=== PATIENT | male | born 1950 | race Caucasian/White ===

== ENCOUNTER 2016-08-23 21:18 | Inpatient (IN) | payer BC ==
[2016-08-23] MEDS ORDERED: Levalbuterol HCl 1.25 MG/3 ML Neb ONE (21:21)
[2016-08-23] MEDS ORDERED: Levalbuterol HCl 1.25 MG/3 ML Neb NEB ONE ×2 (21:31→22:17)
--- NOTE | 2016-08-23 22:38 | EDM.PDOC ---
ED HPI GENERAL MEDICAL PROBLEM - General Chief Complaint: Respiratory Problem Stated Complaint: SOB Time Seen by Provider: 08/23/16 21:31 Source of Information: Reports: Patient History Limitations: Reports: No Limitations - History of Present Illness INITIAL COMMENTS - FREE TEXT/NARRATIVE: Has a history of COPD and CHF. has become increasingly sob today, and is now very sob and wheezing. Onset: Today, Gradual Duration: Hour(s): Location: Reports: Chest Severity: Moderate Associated Symptoms: Reports: Chest Pain, Cough Treatments [employer]ICER: Reports: Breathing Treatments - Related Data Allergies Allergy/AdvReac Type Severity Reaction Status Date / Time No Known Allergies Allergy Verified 08/23/16 21:28 Home Meds: Home Meds Albuterol/Ipratropium [Combivent] 2 puff INH QID PRN 10/17/13 [History] Simvastatin 20 mg PO BEDTIME 10/17/13 [History] Tamsulosin HCl 0.4 mg PO DAILY 10/17/13 [History] Warfarin Sodium 7.5 mg PO DAILY 10/17/13 [History] glipiZIDE [Glucotrol XL] 2.5 mg PO DAILY 10/17/13 [History] Furosemide [Lasix] 80 mg PO BID #60 tablet 10/20/13 [Rx] Aspirin [Halfprin] 81 mg PO DAILY 04/13/15 [History] Carvedilol 6.25 mg PO BID 04/13/15 [History] Losartan Potassium 12.5 mg PO DAILY 04/13/15 [History] Spironolactone [Aldactone] 25 mg PO DAILY 04/13/15 [History] Past Medical History Cardiovascular History: Reports: Heart Valve Replacement, Hypertension Endocrine/Metabolic History: Reports: Diabetes, Type II - Past Surgical History HEENT Surgical History: Reports: Tonsillectomy Other HEENT Surgeries/Procedures: 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 Other Musculoskeletal Surgeries/Procedures:: KNEE TROUBLE-CORTISONE SHOTS ARTHRITIS Social & Family History - Tobacco Use Smoking Status *Q: Never Smoker Second Hand Smoke Exposure: No - Alcohol Use Days Per Week of Alcohol Use: 0 - Recreational Drug Use Recreational Drug Use: No ED ROS GENERAL - Review of Systems Review Of Systems: See Below Constitutional: Reports: No Symptoms, Weakness, Fatigue HEENT: Reports: No Symptoms Respiratory: Reports: Shortness of Breath, Wheezing, Cough Cardiovascular: Reports: No Symptoms, Chest Pain Endocrine: Reports: No Symptoms GI/Abdominal: Reports: No Symptoms : Reports: No Symptoms Musculoskeletal: Reports: No Symptoms Skin: Reports: Wound Neurological: Reports: No Symptoms Psychiatric: Reports: No Symptoms Hematologic/Lymphatic: Reports: No Symptoms Immunologic: Reports: No Symptoms ED EXAM, GENERAL - Physical Exam Exam: See Below Exam Limited By: No Limitations General Appearance: Alert, WD/WN, No Apparent Distress Eye Exam: Right Eye: Abnormal Pupil (blind in right eye) Ears: Normal External Exam Nose: Normal Inspection Throat/Mouth: Normal Inspection Head: Atraumatic, Normocephalic Neck: Normal Inspection, Supple Respiratory/Chest: Crackles, Rales, Rhonchi, Wheezing Cardiovascular: Tachycardia, Irregularly Irregular GI/Abdominal: Distended Back Exam: Normal Inspection Extremities: Pedal Edema Neurological: Alert, Oriented Psychiatric: Anxious Skin Exam: Wound/Incision (stasis ulcer on left leg covered with compression dressing from wound care.) Course - Vital Signs Last Recorded V/S: Last Vital Signs Temp 98.9 F 08/23/16 22:04 Pulse 133 H 08/23/16 22:13 Resp 24 H 08/23/16 22:04 BP 106/75 08/23/16 22:04 Pulse Ox 95 08/23/16 22:04 - Orders/Labs/Meds Orders: Active Orders 24 hr Category Date Time Status RT Aerosol Therapy [RC] ASDIRECTED Care 08/23/16 21:31 Active RT Aerosol Therapy [RC] ASDIRECTED Care 08/23/16 22:17 Active CXR [Chest 2V] [CR] Stat Exams 08/23/16 21:32 Taken Medication Orders Acetaminophen (Tylenol) 650 mg PO Q4H PRN PRN Reason: Pain (Mild 1-3)/fever Aspirin (Halfprin) 81 mg PO DAILY [facility] Carvedilol (Coreg) 6.25 mg PO BID [facility] Furosemide (Lasix) 60 mg IVPUSH Q12H [facility] Levalbuterol HCl (Xopenex) 1.25 mg NEB QIDRT [facility] Losartan Potassium (Cozaar) 12.5 mg PO DAILY [facility] Methylprednisolone Sodium Succinate (Solu-Medrol) 125 mg IVPUSH Q8H [facility] Non-Formulary Medication (Glipizide [Glucotrol Xl]) 2.5 mg PO DAILY [facility] Ondansetron HCl (Zofran Odt) 4 mg PO Q4H PRN PRN Reason: nausea, able to take PO Simvastatin (Zocor) 20 mg PO BEDTIME [facility] Sodium Chloride (Saline Flush) 10 ml FLUSH ASDIRECTED PRN PRN Reason: Keep Vein Open Spironolactone (Aldactone) 25 mg PO DAILY [facility] Tamsulosin HCl (Flomax) 0.4 mg PO DAILY [facility] Warfarin Sodium (Coumadin) 7.5 mg PO DAILY [facility] Labs: Laboratory Tests 08/23/16 08/23/16 08/23/16 Range/Units 22:00 22:00 22:00 WBC 9.2 (5.0-10.0) 10^3/uL RBC 4.48 L (4.50-6.00) 10^6/uL Hgb 14.1 (14.0-18.0) g/dL Hct 43.9 (40.0-54.0) % MCV 98.0 H (82.0-94.0) fL MCH 31.5 (27.0-32.0) pg MCHC 32.1 L (33.0-38.0) g/dL RDW Coeff of Rena 15.0 (11.0-15.0) % Plt Count 187 (150-400) 10^3/uL Neut % (Auto) 71.4 (35-85) % Lymph % (Auto) 12.3 (10-55) % [place] % (Auto) 12.0 (0-16) % Eos % (Auto) 3.8 (0-5) % Baso % (Auto) 0.5 (0-3) % Neut # (Auto) 6.58 (1.80-7.00) 10^3/uL Lymph # (Auto) 1.13 (1.00-4.80) 10^3/uL [place] # (Auto) 1.11 H (0.00-0.80) 10^3/uL Eos # (Auto) 0.35 (0.00-0.45) 10^3/uL Baso # (Auto) 0.05 10^3/uL PT (9.7-12.3) SEC INR (0.92-1.18) D-Dimer, Quantitative 0.35 (0.00-0.50) Sodium 139 (136-145) mEq/L Potassium 5.8 H D (3.5-5.0) mEq/L Chloride 104 (98-106) mEq/L Carbon Dioxide 29 (21-32) mmol/L BUN 25 H (7-18) mg/dL Creatinine 1.8 H D (0.7-1.3) mg/dL Est Cr Clr Drug Dosing 37.41 mL/min Estimated GFR (MDRD) 38 L (>=60) mL/min Glucose 137 H D (75-99) mg/dL Calcium 9.2 (8.4-10.1) mg/dL Total Bilirubin 0.8 (0.0-1.0) mg/dL AST 23 (15-37) U/L ALT 27 (12-78) U/L Alkaline Phosphatase 68 (46-116) U/L Troponin I 0.024 (0.00-0.06) ng/mL [id number]-Yihbtqehtko Pept 4593 H (0-1000) pg/nL Total Protein 7.0 (6.4-8.2) g/dL Albumin 3.5 (3.4-5.0) g/dL 08/23/16 Range/Units 22:00 WBC (5.0-10.0) 10^3/uL RBC (4.50-6.00) 10^6/uL Hgb (14.0-18.0) g/dL Hct (40.0-54.0) % MCV (82.0-94.0) fL MCH (27.0-32.0) pg MCHC (33.0-38.0) g/dL RDW Coeff of Rena (11.0-15.0) % Plt Count (150-400) 10^3/uL Neut % (Auto) (35-85) % Lymph % (Auto) (10-55) % [place] % (Auto) (0-16) % Eos % (Auto) (0-5) % Baso % (Auto) (0-3) % Neut # (Auto) (1.80-7.00) 10^3/uL Lymph # (Auto) (1.00-4.80) 10^3/uL [place] # (Auto) (0.00-0.80) 10^3/uL Eos # (Auto) (0.00-0.45) 10^3/uL Baso # (Auto) 10^3/uL PT 60.0 H (9.7-12.3) SEC INR 5.28 H* (0.92-1.18) D-Dimer, Quantitative (0.00-0.50) Sodium (136-145) mEq/L Potassium (3.5-5.0) mEq/L Chloride (98-106) mEq/L Carbon Dioxide (21-32) mmol/L BUN (7-18) mg/dL Creatinine (0.7-1.3) mg/dL Est Cr Clr Drug Dosing mL/min Estimated GFR (MDRD) (>=60) mL/min Glucose (75-99) mg/dL Calcium (8.4-10.1) mg/dL Total Bilirubin (0.0-1.0) mg/dL AST (15-37) U/L ALT (12-78) U/L Alkaline Phosphatase (46-116) U/L Troponin I (0.00-0.06) ng/mL Fdy-M-Ikbjhlqyitd Pept (0-1000) pg/nL Total Protein (6.4-8.2) g/dL Albumin (3.4-5.0) g/dL Meds: Medications Generic Name Dose Route Start Last Admin Trade Name Freq PRN Reason Stop Dose Admin Acetaminophen 650 mg 08/23/16 22:52 Tylenol PO Q4H PRN Pain (Mild 1-3)/fever Aspirin 81 mg 08/24/16 08:00 Halfprin PO DAILY [facility] Carvedilol 6.25 mg 08/24/16 08:00 Coreg PO BID [facility] Furosemide 60 mg 08/23/16 23:11 Lasix IVPUSH Q12H [facility] Levalbuterol HCl 1.25 mg 08/23/16 23:15 Xopenex NEB QIDRT [facility] Losartan Potassium 12.5 mg 08/24/16 08:00 Cozaar PO DAILY [facility] Methylprednisolone Sodium Succinate 125 mg 08/23/16 23:00 Solu-Medrol IVPUSH Q8H [facility] Non-Formulary Medication 2.5 mg 08/24/16 08:00 Glipizide [Glucotrol Xl] PO DAILY [facility] Ondansetron HCl 4 mg 08/23/16 22:52 Zofran Odt PO Q4H PRN nausea, able to take PO Simvastatin 20 mg 08/24/16 20:00 Zocor PO BEDTIME [facility] Sodium Chloride 10 ml 08/23/16 22:52 Saline Flush FLUSH ASDIRECTED PRN Keep Vein Open Spironolactone 25 mg 08/24/16 08:00 Aldactone PO DAILY [facility] Tamsulosin HCl 0.4 mg 08/24/16 08:00 Flomax PO DAILY [facility] Warfarin Sodium 7.5 mg 08/24/16 08:00 Coumadin PO DAILY [facility] Discontinued Medications Generic Name Dose Route Start Last Admin Trade Name Freq PRN Reason Stop Dose Admin Furosemide 60 mg 08/23/16 22:50 08/23/16 22:54 Lasix IVPUSH 08/23/16 22:51 60 mg ONETIME ONE Administration Furosemide 40 mg 08/23/16 23:00 Lasix IVPUSH Q12H [facility] Levalbuterol HCl Confirm 08/23/16 21:21 08/23/16 21:50 Xopenex Administered 08/23/16 21:22 Not Given Dose 1.25 mg .ROUTE .STK-MED ONE Levalbuterol HCl 1.25 mg 08/23/16 21:31 08/23/16 21:50 Xopenex NEB 08/23/16 21:32 1.25 mg ONETIME ONE Administration Levalbuterol HCl 1.25 mg 08/23/16 22:17 08/23/16 22:20 Xopenex NEB 08/23/16 22:18 1.25 mg ONETIME ONE Administration Methylprednisolone Sodium Succinate 125 mg 08/23/16 23:00 08/23/16 22:54 Solu-Medrol IVPUSH 125 mg Q12H [facility] Administration Departure - Departure Time of Disposition: 23:22 Disposition: Admitted As Inpatient 68 Condition: fair Clinical Impression: CHF (congestive heart failure), COPD (chronic obstructive pulmonary disease), Hyperkalemia, Renal insufficiency - Discharge Information - My Orders Last 24 Hours: My Active Orders 08/23/16 21:31 RT Aerosol Therapy [RC] ASDIRECTED 08/23/16 21:32 CXR [Chest 2V] [CR] Stat 08/23/16 22:17 RT Aerosol Therapy [RC] ASDIRECTED - Assessment/Plan Last 24 Hours: My Active Orders 08/23/16 21:31 RT Aerosol Therapy [RC] ASDIRECTED 08/23/16 21:32 CXR [Chest 2V] [CR] Stat 08/23/16 22:17 RT Aerosol Therapy [RC] ASDIRECTED
[2016-08-23] MEDS ORDERED: Furosemide 100 MG/10 ML SDV IVPUSH ONE (22:50)
[2016-08-23] MEDS ORDERED: Sodium Chloride 0.9% 10 ML Syringe FLUSH PRN (22:52)
[2016-08-23] MEDS ORDERED: Ondansetron 4 MG Tab.DIS PO PRN (22:52)
[2016-08-23] MEDS ORDERED: Acetaminophen 325 MG Tab PO PRN (22:52)
[2016-08-23] MEDS ORDERED: Furosemide 40 MG/4 ML VIAL IVPUSH SCH (23:00)
[2016-08-23] MEDS ORDERED: methylPREDNISolone Sodium Succinate 125 MG/2 ML SDV IVPUSH SCH (23:00)
[2016-08-23] MEDS: methylPREDNISolone Sodium Succinate 125 MG/2 ML SDV IVPUSH SCH (23:56)
[2016-08-23] MEDS: Furosemide 40 MG/4 ML VIAL IVPUSH SCH (23:57)
[2016-08-23] MEDS: Levalbuterol HCl 1.25 MG/3 ML Neb NEB SCH (23:57)
[2016-08-24] MEDS: methylPREDNISolone Sodium Succinate 125 MG/2 ML SDV IVPUSH SCH ×3 (06:30→22:01)
[2016-08-24] MEDS: Carvedilol 3.125 MG Tab PO SCH ×2 (07:49→19:47)
[2016-08-24] MEDS: Spironolactone 25 MG Tab PO SCH (07:49)
[2016-08-24] MEDS: Losartan 25 MG Tab PO SCH (07:50)
[2016-08-24] MEDS: Tamsulosin 0.4 MG Cap.ER PO SCH (07:50)
[2016-08-24] MEDS ORDERED: Warfarin 5 MG Tab PO SCH (08:00)
[2016-08-24] MEDS: Levalbuterol HCl 1.25 MG/3 ML Neb NEB SCH ×4 (09:07→21:14)
[2016-08-24] MEDS: GLIPIZIDE 2.5 MG PO SCH (10:05)
[2016-08-24] MEDS: Furosemide 40 MG/4 ML VIAL IVPUSH SCH ×2 (10:22→22:12)
[2016-08-24] MEDS: Warfarin 5 MG Tab PO SCH (12:08)
[2016-08-24] MEDS: Aspirin 81 MG Tab.EC PO SCH (12:08)
[2016-08-24] MEDS: Insulin Aspart 100 Units/ML 3 ML Pen SUBCUT SCH ×3 (12:09→21:36)
--- NOTE | 2016-08-24 12:49 | PCM.PN ---
- General Info Date of Service: 08/24/16 Admission Dx/Problem (Free Text): CHF/ copd Functional Status: Reports: pain controlled - Review of Systems General: Reports: No Symptoms HEENT: Reports: no symptoms Cardiovascular: Reports: Dyspnea on Exertion Gastrointestinal: Reports: No symptoms Musculoskeletal: Reports: no symptoms Skin: Reports: no symptoms Neurological: Reports: No Symptoms Psychiatric: Reports: no symptoms Systems Review Comment:: Sitting up in chair, states he is breathing much better. Offloading large amounts of urine. Lab looks good Serum K down. Started on sliding scale insulin due to elevated blood sugars secondary to steroids. Will continue to monitor closely. - Patient Data Vitals - most recent: Last Vital Signs Temp 97.2 F 08/24/16 11:45 Pulse 106 H 08/24/16 11:45 Resp 18 08/24/16 11:45 BP 134/82 08/24/16 11:45 Pulse Ox 92 L 08/24/16 11:45 Weight - most recent: 262 lb 11.2 oz I&O - last 24 hours: Intake & Output 08/23/16 08/24/16 08/24/16 22:59 06:59 14:59 Intake Total 600 600 Output Total 2750 1000 Balance -2150 -400 Lab Results last 24 hrs: Laboratory Results - last 24 hr 08/24/16 08/24/16 Range/Units 07:15 08:01 Sodium 139 (136-145) mEq/L Potassium 4.9 (3.5-5.0) mEq/L Chloride 103 (98-106) mEq/L Carbon Dioxide 27 (21-32) mmol/L BUN 24 H (7-18) mg/dL Creatinine 1.5 H (0.7-1.3) mg/dL Est Cr Clr Drug Dosing 44.90 mL/min Estimated GFR (MDRD) 47 L (>=60) mL/min Glucose 167 H (75-99) mg/dL POC Glucose 180 H (75-105) mg/dl Calcium 9.0 (8.4-10.1) mg/dL Troponin I 0.018 (0.00-0.06) ng/mL Med Orders - Current: Current Medications Acetaminophen (Tylenol) 650 mg PO Q4H PRN PRN Reason: Pain (Mild 1-3)/fever Aspirin (Halfprin) 81 mg PO DAILY [facility] Last Admin: 08/24/16 12:08 Dose: 81 mg Carvedilol (Coreg) 6.25 mg PO BID [facility] Last Admin: 08/24/16 07:49 Dose: 6.25 mg Furosemide (Lasix) 60 mg IVPUSH Q12H [facility] Last Admin: 08/24/16 10:22 Dose: 60 mg Insulin Aspart (Novolog) 0 unit SUBCUT WITHMEALSANDBED [facility] PRN Reason: Protocol Last Admin: 08/24/16 12:09 Dose: 6 units Levalbuterol HCl (Xopenex) 1.25 mg NEB QIDRT [facility] Last Admin: 08/24/16 09:07 Dose: 1.25 mg Losartan Potassium (Cozaar) 12.5 mg PO DAILY [facility] Last Admin: 08/24/16 07:50 Dose: 12.5 mg Methylprednisolone Sodium Succinate (Solu-Medrol) 125 mg IVPUSH Q8H [facility] Last Admin: 08/24/16 06:30 Dose: 125 mg Non-Formulary Medication (Glipizide [Glucotrol Xl]) 2.5 mg PO DAILY [facility] Last Admin: 08/24/16 10:05 Dose: 2.5 mg Ondansetron HCl (Zofran Odt) 4 mg PO Q4H PRN PRN Reason: nausea, able to take PO Simvastatin (Zocor) 20 mg PO BEDTIME [facility] Sodium Chloride (Saline Flush) 10 ml FLUSH ASDIRECTED PRN PRN Reason: Keep Vein Open Spironolactone (Aldactone) 25 mg PO DAILY [facility] Last Admin: 08/24/16 07:49 Dose: 25 mg Tamsulosin HCl (Flomax) 0.4 mg PO DAILY [facility] Last Admin: 08/24/16 07:50 Dose: 0.4 mg Warfarin Sodium (Coumadin) 5 mg PO DAILY@1200 [facility] Last Admin: 08/24/16 12:08 Dose: 5 mg Discontinued Medications Furosemide (Lasix) 60 mg IVPUSH ONETIME ONE Stop: 08/23/16 22:51 Last Admin: 08/23/16 22:54 Dose: 60 mg Furosemide (Lasix) 40 mg IVPUSH Q12H [facility] Last Admin: 08/23/16 23:57 Dose: Not Given Levalbuterol HCl (Xopenex) Confirm Administered Dose 1.25 mg .ROUTE .STK-MED ONE Stop: 08/23/16 21:22 Last Admin: 08/23/16 21:50 Dose: Not Given Levalbuterol HCl (Xopenex) 1.25 mg NEB ONETIME ONE Stop: 08/23/16 21:32 Last Admin: 08/23/16 21:50 Dose: 1.25 mg Levalbuterol HCl (Xopenex) 1.25 mg NEB ONETIME ONE Stop: 08/23/16 22:18 Last Admin: 08/23/16 22:20 Dose: 1.25 mg Methylprednisolone Sodium Succinate (Solu-Medrol) 125 mg IVPUSH Q12H [facility] Last Admin: 08/23/16 22:54 Dose: 125 mg Warfarin Sodium (Coumadin) 7.5 mg PO DAILY [facility] - Problem List Review Problem List Initiated/Reviewed/Updated: Yes - My Orders Last 24 Hours: My Active Orders 08/23/16 22:52 Bedrest Bathroom Privileges [RC] .PRN Oxygen Therapy [RC] .PRN Up to Chair [RC] .PRN Vital Signs [RC] 0000,0400,0800,1200,1600,2000 Acetaminophen [Tylenol] 650 mg PO Q4H PRN Ondansetron [Zofran ODT] 4 mg PO Q4H PRN Sodium Chloride 0.9% [Saline Flush] 10 ml FLUSH ASDIRECTED PRN Saline Lock Insert [OM.PC] Routine Resuscitation Status Routine 08/23/16 22:53 Intake and Output [RC] 0600,1800 08/23/16 22:54 Cardiac Monitoring [RC] 0800,2000 08/23/16 23:00 methylPREDNISolone Sod Succ [Solu-MEDROL] 125 mg IVPUSH Q8H 08/23/16 23:04 RT Aerosol Therapy [RC] .PRN 08/23/16 23:11 Furosemide [Lasix] 60 mg IVPUSH Q12H 08/23/16 23:15 Levalbuterol HCl [Xopenex] 1.25 mg NEB QIDRT 08/23/16 23:44 Blood Glucose Check, Bedside [RC] WITHMEALSANDBED 08/24/16 08:00 Aspirin [Halfprin] 81 mg PO DAILY Carvedilol [Coreg] 6.25 mg PO BID Losartan [Cozaar] 12.5 mg PO DAILY Spironolactone [Aldactone] 25 mg PO DAILY Tamsulosin [Flomax] 0.4 mg PO DAILY glipiZIDE [Glucotrol XL] 2.5 mg PO DAILY 08/24/16 12:00 Insulin Aspart [NovoLOG] See Protocol SUBCUT WITHMEALSANDBED Warfarin [Coumadin] 5 mg PO DAILY@1200 08/24/16 20:00 Simvastatin [Zocor] 20 mg PO BEDTIME 08/25/16 12:37 BMP [BASIC METABOLIC PANEL,BMP] [CHEM] Routine 08/27/16 05:11 INR,PT,PROTHROMBIN TIME [COAG] AM
[2016-08-24] MEDS: Simvastatin 20 MG Tab PO SCH (19:49)
[2016-08-25] MEDS: methylPREDNISolone Sodium Succinate 125 MG/2 ML SDV IVPUSH SCH ×2 (07:41→20:49)
[2016-08-25] MEDS: Furosemide 40 MG/4 ML VIAL IVPUSH SCH ×2 (07:44→16:12)
[2016-08-25] MEDS: GLIPIZIDE 2.5 MG PO SCH (07:48)
[2016-08-25] MEDS: Tamsulosin 0.4 MG Cap.ER PO SCH (07:48)
[2016-08-25] MEDS: Aspirin 81 MG Tab.EC PO SCH (07:49)
[2016-08-25] MEDS: Spironolactone 25 MG Tab PO SCH (07:49)
[2016-08-25] MEDS: Carvedilol 3.125 MG Tab PO SCH ×2 (07:53→20:49)
[2016-08-25] MEDS: Losartan 25 MG Tab PO SCH (07:53)
[2016-08-25] MEDS: Insulin Aspart 100 Units/ML 3 ML Pen SUBCUT SCH ×4 (08:30→20:56)
[2016-08-25] MEDS: Levalbuterol HCl 1.25 MG/3 ML Neb NEB SCH ×4 (08:33→20:49)
[2016-08-25] MEDS: Warfarin 5 MG Tab PO SCH (12:12)
--- NOTE | 2016-08-25 13:25 | PCM.PN ---
- General Info Date of Service: 08/25/16 Admission Dx/Problem (Free Text): CHF/COPD. Patient is much better, and feels good. BBS are clear. Patient has lost 12 lbs since admission. Will stop Lasix after next dose. Patient wants to go home, but I talked him into staying one more day to get set up with home oxygen. Renal panel is much improved, serum K down to 3.9. Will need to evaluate potassium intake at discharge. I spoke at length with patient about hsi work life. He is wanting to get back to [employer] as soon as possible, but I think her needs to go home and rest for a least a week. 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 - Review of Systems General: Reports: No Symptoms HEENT: Reports: no symptoms Pulmonary: Reports: no symptoms Cardiovascular: Reports: No Symptoms Gastrointestinal: Reports: No symptoms Musculoskeletal: Reports: no symptoms Skin: Reports: no symptoms Neurological: Reports: No Symptoms Psychiatric: Reports: no symptoms - Patient Data Vitals - most recent: Last Vital Signs Temp 96.7 F 08/25/16 12:00 Pulse 128 H 08/25/16 12:00 Resp 16 08/25/16 12:00 BP 115/72 08/25/16 12:00 Pulse Ox 91 L 08/25/16 12:00 Weight - most recent: 256 lb I&O - last 24 hours: Intake & Output 08/24/16 08/25/16 08/25/16 22:59 06:59 14:59 Intake Total 600 600 Output Total 1150 850 Balance -550 -250 Lab Results last 24 hrs: Laboratory Results - last 24 hr 08/24/16 08/24/16 08/24/16 Range/Units 11:37 17:20 21:30 Sodium (136-145) mEq/L Potassium (3.5-5.0) mEq/L Chloride (98-106) mEq/L Carbon Dioxide (21-32) mmol/L BUN (7-18) mg/dL Creatinine (0.7-1.3) mg/dL Est Cr Clr Drug Dosing mL/min Estimated GFR (MDRD) (>=60) mL/min Glucose (75-99) mg/dL POC Glucose 282 H 175 H 261 H (75-105) mg/dl Calcium (8.4-10.1) mg/dL 08/25/16 08/25/16 08/25/16 Range/Units 07:30 07:57 11:48 Sodium 139 (136-145) mEq/L Potassium 3.9 D (3.5-5.0) mEq/L Chloride 101 (98-106) mEq/L Carbon Dioxide 31 (21-32) mmol/L BUN 26 H (7-18) mg/dL Creatinine 1.5 H (0.7-1.3) mg/dL Est Cr Clr Drug Dosing 44.90 mL/min Estimated GFR (MDRD) 47 L (>=60) mL/min Glucose 158 H (75-99) mg/dL POC Glucose 165 H 244 H (75-105) mg/dl Calcium 8.9 (8.4-10.1) mg/dL Med Orders - Current: Current Medications Acetaminophen (Tylenol) 650 mg PO Q4H PRN PRN Reason: Pain (Mild 1-3)/fever Aspirin (Halfprin) 81 mg PO DAILY [facility] Last Admin: 08/25/16 07:49 Dose: 81 mg Carvedilol (Coreg) 6.25 mg PO BID [facility] Last Admin: 08/25/16 07:53 Dose: 6.25 mg Furosemide (Lasix) 40 mg IVPUSH BIDDIURETIC [facility] Last Admin: 08/25/16 07:44 Dose: 40 mg Insulin Aspart (Novolog) 0 unit SUBCUT WITHMEALSANDBED [facility] PRN Reason: Protocol Last Admin: 08/25/16 12:12 Dose: 4 units Levalbuterol HCl (Xopenex) 1.25 mg NEB QIDRT [facility] Last Admin: 08/25/16 12:53 Dose: 1.25 mg Losartan Potassium (Cozaar) 12.5 mg PO DAILY [facility] Last Admin: 08/25/16 07:53 Dose: 12.5 mg Methylprednisolone Sodium Succinate (Solu-Medrol) 125 mg IVPUSH Q12H [facility] Last Admin: 08/25/16 07:41 Dose: 125 mg Non-Formulary Medication (Glipizide [Glucotrol Xl]) 2.5 mg PO DAILY [facility] Last Admin: 08/25/16 07:48 Dose: 2.5 mg Ondansetron HCl (Zofran Odt) 4 mg PO Q4H PRN PRN Reason: nausea, able to take PO Simvastatin (Zocor) 20 mg PO BEDTIME [facility] Last Admin: 08/24/16 19:49 Dose: 20 mg Sodium Chloride (Saline Flush) 10 ml FLUSH ASDIRECTED PRN PRN Reason: Keep Vein Open Spironolactone (Aldactone) 25 mg PO DAILY [facility] Last Admin: 08/25/16 07:49 Dose: 25 mg Tamsulosin HCl (Flomax) 0.4 mg PO DAILY [facility] Last Admin: 08/25/16 07:48 Dose: 0.4 mg Warfarin Sodium (Coumadin) 5 mg PO DAILY@1200 [facility] Last Admin: 08/25/16 12:12 Dose: 5 mg Discontinued Medications Furosemide (Lasix) 60 mg IVPUSH ONETIME ONE Stop: 08/23/16 22:51 Last Admin: 08/23/16 22:54 Dose: 60 mg Furosemide (Lasix) 40 mg IVPUSH Q12H [facility] Last Admin: 08/23/16 23:57 Dose: Not Given Furosemide (Lasix) 60 mg IVPUSH Q12H [facility] Last Admin: 08/24/16 22:12 Dose: 60 mg Levalbuterol HCl (Xopenex) Confirm Administered Dose 1.25 mg .ROUTE .STK-MED ONE Stop: 08/23/16 21:22 Last Admin: 08/23/16 21:50 Dose: Not Given Levalbuterol HCl (Xopenex) 1.25 mg NEB ONETIME ONE Stop: 08/23/16 21:32 Last Admin: 08/23/16 21:50 Dose: 1.25 mg Levalbuterol HCl (Xopenex) 1.25 mg NEB ONETIME ONE Stop: 08/23/16 22:18 Last Admin: 08/23/16 22:20 Dose: 1.25 mg Methylprednisolone Sodium Succinate (Solu-Medrol) 125 mg IVPUSH Q12H [facility] Last Admin: 08/23/16 22:54 Dose: 125 mg Methylprednisolone Sodium Succinate (Solu-Medrol) 125 mg IVPUSH Q8H [facility] Last Admin: 08/24/16 22:01 Dose: 125 mg Warfarin Sodium (Coumadin) 7.5 mg PO DAILY [facility] - Problem List Review Problem List Initiated/Reviewed/Updated: Yes - My Orders Last 24 Hours: My Active Orders 08/24/16 20:00 Simvastatin [Zocor] 20 mg PO BEDTIME 08/25/16 08:00 Furosemide [Lasix] 40 mg IVPUSH BIDDIURETIC methylPREDNISolone Sod Succ [Solu-MEDROL] 125 mg IVPUSH Q12H 08/27/16 05:11 INR,PT,PROTHROMBIN TIME [COAG] AM
[2016-08-25] MEDS: Simvastatin 20 MG Tab PO SCH (20:57)
[2016-08-26] MEDS: Carvedilol 3.125 MG Tab PO SCH ×2 (07:26→19:34)
[2016-08-26] MEDS: Spironolactone 25 MG Tab PO SCH (07:26)
[2016-08-26] MEDS: Losartan 25 MG Tab PO SCH (07:27)
[2016-08-26] MEDS: Tamsulosin 0.4 MG Cap.ER PO SCH (07:28)
[2016-08-26] MEDS: GLIPIZIDE 2.5 MG PO SCH (07:29)
[2016-08-26] MEDS: Furosemide 40 MG Tab PO SCH (07:29)
[2016-08-26] MEDS: Aspirin 81 MG Tab.EC PO SCH (07:29)
[2016-08-26] MEDS: methylPREDNISolone Sodium Succinate 125 MG/2 ML SDV IVPUSH SCH ×2 (07:30→19:35)
[2016-08-26] MEDS: Insulin Aspart 100 Units/ML 3 ML Pen SUBCUT SCH ×4 (07:34→21:07)
[2016-08-26] MEDS: Levalbuterol HCl 1.25 MG/3 ML Neb NEB SCH ×4 (09:34→21:06)
[2016-08-26] MEDS: Simvastatin 20 MG Tab PO SCH (19:35)
[2016-08-27] MEDS ORDERED: glipiZIDE 2.5 MG Tab.ER PO SCH (08:00)
[2016-08-27] MEDS: Tamsulosin 0.4 MG Cap.ER PO SCH (08:28)
[2016-08-27] MEDS: Spironolactone 25 MG Tab PO SCH (08:28)
[2016-08-27] MEDS: Aspirin 81 MG Tab.EC PO SCH (08:28)
[2016-08-27] MEDS: methylPREDNISolone Sodium Succinate 125 MG/2 ML SDV IVPUSH SCH (08:29)
[2016-08-27] MEDS: Furosemide 40 MG Tab PO SCH (08:29)
[2016-08-27] MEDS: Insulin Aspart 100 Units/ML 3 ML Pen SUBCUT SCH (08:32)
[2016-08-27] MEDS: Losartan 25 MG Tab PO SCH (09:02)
[2016-08-27] MEDS: Carvedilol 3.125 MG Tab PO SCH (09:02)
[2016-08-27 09:03] VITALS: BP 145/93
[2016-08-27] MEDS: Levalbuterol HCl 1.25 MG/3 ML Neb NEB SCH (09:07)
--- NOTE | 2016-08-28 07:24 | DISCH ---
HISTORY OF PRESENT ILLNESS: Parag is a 66-year-old male who was admitted to the hospital on 08/23/2016 secondary to CHF and COPD. He had increasing shortness of breath. HOSPITAL COURSE: Breathing improved. He continued to have some dyspnea on exertion with some desaturation while exerting even down to the mid 80%. He did lose quite a bit of fluids on admission. His weight was down 10 pounds in a day. He states that he is feeling much better. Dr. Wilson has been following him during his hospital stay as well as the locum. He did undergo an echocardiogram this morning, however those results are pending. Renal panel has improved as well as serum potassium did come down within normal limits. He was hyperkalemic on admission. LABORATORY WORK: On admission, INR was elevated at 5.28, creatinine was 1.8 with a potassium of 5.8. Repeat potassium on the 08/24/2016 did show down to be 4.9. Creatinine did come down to 1.5. Potassium was down to 3.9 on 08/25/2016 with a creatinine continued to be stable at 1.5. INR did elevate up to 6.96 with his Coumadin just recently being held. This morning the Coumadin level was down to 5.81. PHYSICAL EXAMINATION: VITAL SIGNS: His vital signs did show a current weight to be 253 pounds. On admission he was 268 pounds. Last blood pressure is 131/60 with a respiratory rate is 16, O2 98% on 2 L. Pulse is 75 with a temp of 98. GENERAL: Pleasant cooperative male. He is sitting comfortably in examination room. He is requesting to be discharged today. PLAN: Dr. Wilson did evaluate Parag again this morning. We will plan on discharge at this time. He will be sent home on home oxygen which will be set up by RT Lola. We will also resume home medications. However, we will hold his Coumadin dose until Thursday with followup appointment with Dr. Wilson on Thursday in [facility]. He will have some laboratory work at that time as well. We will increase his Lasix to 80 mg daily. No other further medications will be changed at this point in time. Parag verbalized complete understanding. We will get discharged at this time. DISPOSITION: Discharged home. CHEO/KANDY /[id number]
--- NOTE | 2016-10-13 07:39 | PN ---
DATE: 08/26/2016 S: Mr. Knox was admitted and managed for the weekend by Dr. Selwyn Draper for exacerbation of his CHF. He has been diuresed with Lasix and maintains that he is starting to feel better. Echocardiogram is pending. His weight is down almost 10 pounds since the time of his admission. His blood pressures are better. He is saturating in the upper 90s on 2 L, and for the most part, he has had no complications. INR was elevated at admit as well as his potassium. Coumadin has been held and his potassium is coming down as is his creatinine. O: GENERAL: He is in his usual state. He is a plethoric 66-year-old male in no obvious distress. HEENT: Grossly benign. NECK: Veins are flat and difficult to assess. LUNGS: Sounds are diminished with some basilar crackles. CARDIAC: Tones are irregular. ABDOMEN: Obese, soft, and nontender. EXTREMITIES: Lower extremities with improvement of his edema. He has chronic stasis changes as well. ASSESSMENT: ACUTE EXACERBATION OF CHRONIC SYSTOLIC CONGESTIVE HEART FAILURE. P: Echocardiogram tomorrow. If he is doing well, possible discharge at that time. Continue with diuresis at this point. JACKY/KANDY /[id number]
== END 2016-08-27 10:34 | disposition home health service (06) | DRG 194 ==
LOC: CC.ED 21:18 → CC.MS 22:50
PROVIDERS: ADMIT Nurse Practitioner Family; ATTEND Family Medicine
PROC: 2W1MX6Z Compression of Left Lower Extremity using Pressure Dressing (ICD-10-PCS; principal; 2016-08-26)
DX: I50.9 Heart failure, unspecified (principal); J44.9 Chronic obstructive pulmonary disease, unspecified; I10 Essential (primary) hypertension; E11.9 Type 2 diabetes mellitus without complications; E87.5 Hyperkalemia; N28.9 Disorder of kidney and ureter, unspecified; Z79.899 Other long term (current) drug therapy; Z95.2 Presence of prosthetic heart valve; Z79.01 Long term (current) use of anticoagulants; I83.029 Varicose veins of left lower extremity with ulcer of unspecified site
CPT/HCPCS: 29581; 36415; 71020; 80048; 80053; 82962; 83880; 84484; 85025; 85379; 85610; 93005; 93306; 94640; 94640-76; 94664; 94760; 99285; A9270-GY; J1815-GY; J1940; J2930

== ENCOUNTER → 2017-02-27 | Day surgery (SDC) | payer BC ==
[~2017-02-27] MED LIST: Lidocaine 1% 20 ML MDV ONE
--- NOTE | 2017-02-27 09:43 | OR ---
DATE OF OPERATION: 02/27/2017 PREOPERATIVE DIAGNOSIS: VENOUS INSUFFICIENCY WITH PAINFUL VARICOSE VEINS AND LEG ULCERATIONS. POSTOPERATIVE DIAGNOSIS: VENOUS INSUFFICIENCY WITH PAINFUL VARICOSE VEINS AND LEG ULCERATIONS. SURGEON: Js Wilson MD PROCEDURE: EL, LEFT GSV. ANESTHESIA: Local with tumescent. COMPLICATIONS: None. SPECIMEN: None. FINDINGS: Successful EL, left GSV. INDICATIONS: The patient has documented venous insufficiency. He has CEAP classification with active ulcerations in his left lower leg. He elected to proceed with ablation. DESCRIPTION OF PROCEDURE: The patient was brought to the operating room site, and the insufficient saphenous vein on the left lower leg mapped via ultrasound and diagrammed on the overlying skin. The entire limb was prepped and draped in sterile fashion. The patient was placed in reverse Trendelenburg position. Local anesthesia instilled in the access site. The vein was accessed using ultrasound guidance and Seldinger technique with a guidewire introduced through the needle, needle removed, and a small incision made with 11 blade scalpel. A 6-Yoruba sheath was placed over the wire and held in place by skin tension, wire removed, and the sheath was flushed. Radiofrequency probe was then placed into the vein and advanced to the level of the saphenofemoral junction approximately 2 cm away, keeping just the superior epigastric vein to preserve flow in that region. After probe position again confirmed via ultrasound, tumescent anesthesia was infiltrated in the perivenous compartment achieving a halo effect around the entire vein from the level treatment from the access site to the saphenofemoral junction. The patient was placed back in Trendelenburg position to exsanguinate the superficial system, and the probe position was again verified via ultrasound. Under direct external compression along the length of the heating element, radiofrequency energy was applied. The vein was ablated heating a 7 cm segment and advancing the catheter 6.5 cm until treatment length complete. Device temperature was maintained at 120 degrees Celsius with an initial power level of 40 perez dropping in below 20 for each treatment. Total treatment time was 3 minutes and 40 seconds with 11 radiofrequency cycles. A total of 750 mL of tumescent anesthesia was used. The catheter and sheath were removed without complication and a pressure dressing applied to achieve hemostasis. Ultrasound verified successful treatment. The leg was wrapped with compression wrap from the level of the foot to the groin and patient was stable in the recovery room. MJP/MODL /[id number]
[2017-02-27 16:36] VITALS: BP 140/68
== END ==
LOC: CC.SDS 06:32
PROVIDERS: ATTEND Family Medicine
DX: I87.2 Venous insufficiency (chronic) (peripheral) (principal); L97.929 Non-pressure chronic ulcer of unspecified part of left lower leg with unspecified severity; I83.812 Varicose veins of left lower extremity with pain; Z79.82 Long term (current) use of aspirin; Z79.01 Long term (current) use of anticoagulants; Z79.899 Other long term (current) drug therapy
CPT/HCPCS: 36475; A4216

== ENCOUNTER → 2017-03-26 | Day surgery (SDC) | payer BC ==
[2017-03-26 08:22] VITALS: BP 136/89
--- NOTE | 2017-03-26 11:53 | OR ---
DATE OF OPERATION: 03/26/2017 PREOPERATIVE DIAGNOSIS: VENOUS INSUFFICIENCY WITH PAINFUL VARICOSE VEINS. POSTOPERATIVE DIAGNOSIS: VENOUS INSUFFICIENCY WITH PAINFUL VARICOSE VEINS. SURGEON: Js Wilson MD PROCEDURE: EL, RIGHT GSV. ANESTHESIA: Local with tumescent. COMPLICATIONS: None. SPECIMEN: None. FINDINGS: Successful EL, right GSV. INDICATIONS: The patient has documented venous insufficiency at the saphenofemoral junction. He has symptomatic varicose veins and he elects to proceed with endovenous ablation. DESCRIPTION OF PROCEDURE: The patient brought to the operating room site and the insufficient saphenous vein was mapped via ultrasound and diagrammed on the overlying skin on the right lower extremity. The patient was placed in reverse Trendelenburg position and local anesthesia was instilled at the access site. The vein was accessed using ultrasound guidance and Seldinger technique with a guidewire introduced through the needle. The needle was removed. A small incision was then made with an 11 blade scalpel at the area of the guidewire. A 6-Mohawk sheath was then inserted over the guidewire and held in place by skin tension. Guidewire was removed. The sheath was flushed and radiofrequency probe was placed into the vein through the sheath and positioned approximately 2.05 cm distal to the saphenofemoral junction under ultrasound guidance. After probe position again verified via ultrasound, tumescent anesthesia was infiltrated into the perivenous compartment along the length of the vein from the entry site to the saphenofemoral junction until a nice halo effect was achieved. The patient was placed back in Trendelenburg position to exsanguinate the superficial system. Radiofrequency probe positioned again confirmed via ultrasound at 2 cm with direct external compression along the length of the heating element, radiofrequency energy was applied and the vein was ablated by heating a 7 cm segment and indexing the catheter forward 6.5 cm until treatment length complete. Device temperature was maintained at 120 degrees Celsius with an initial power level of 40 perez, dropping to below 20 for each treatment. Total treatment time was 5 minutes and 20 seconds with 16 radiofrequency cycles. A total of 750 mL of tumescent was used. Ultrasound confirmed successful treatment. Catheter and sheath were withdrawn and hemostasis was achieved with direct pressure. Skin incision was closed with a bandage and compression wrap was applied from the level of the foot to the groin. The patient was stable in the recovery room. JACKY/KANDY /[id number]
== END ==
LOC: CC.SDS 06:33
PROVIDERS: ATTEND Family Medicine
DX: I87.2 Venous insufficiency (chronic) (peripheral) (principal); I83.811 Varicose veins of right lower extremity with pain
CPT/HCPCS: A4216

== ENCOUNTER → 2019-04-15 | Day surgery (SDC) | payer MEDICARE, BC ==
[~2019-04-15] MED LIST changes: -Lidocaine 1% 20 ML MDV ONE; +Propofol 200 MG/20 ML SDV IV ONE
[2019-04-15] MEDS: Lactated Ringers 1,000 ML IV SCH (07:41)
[2019-04-15 10:25] VITALS: BP 101/49; PULSE 56
--- NOTE | 2019-04-15 18:40 | OR ---
DATE OF OPERATION: 04/15/2019 PREOPERATIVE DIAGNOSIS: HISTORY OF POLYPS. POSTOPERATIVE DIAGNOSIS: HISTORY OF POLYPS. SURGEON: Js Wilson MD PROCEDURE: FULL-LENGTH COLONOSCOPY WITH FORCEPS POLYP REMOVAL X3. ANESTHESIA: MAC. COMPLICATIONS: None. SPECIMEN: Three small sessile polyps, all less than 0.5 cm. FINDINGS: 1. Full-length colonoscopy. 2. Mild sigmoid diverticulosis. 3. Sessile polyps x3, see report. RECOMMENDATIONS: Followup colonoscopy in 5 years. INDICATIONS: The patient has a prior history of polyp removal. He is due for a followup endoscopy. DESCRIPTION OF PROCEDURE: The patient was prepped and draped, placed in the left lateral decubitus position. A lubricated Olympus colonoscope was inserted and with relative ease advanced to the cecum further to directly visualize the ileocecal valve and appendiceal orifice. The bowel prep was marginal. The patient had a lot of liquid stool throughout the colon and he was a very hard to keep the air in, which made visualization difficult in some areas. Certainly, smaller lesions may have been missed. Upon withdrawal right in the cecal pouch, the patient had a very small flat likely hyperplastic polyp removed in its entirety with a forceps. The rest of the ascending and transverse colon were benign. At the splenic flexure, the patient had 2 small sessile polyps, each approximately 3 mm, both removed with forceps in their entirety. Descending colon otherwise was benign. Sigmoid colon had some very mild diverticular disease without inflammatory change. There were no other polyps, masses, ulceration, or bleeding sites. No vascular abnormalities or signs of colitis. Rectal vault was benign. Retroflexion showed some perianal hemorrhoid disease, otherwise, benign. Air was suctioned, scope removed without complication. JACKY/KANDY /[id number]
== END ==
LOC: CC.SDS 07:23
PROVIDERS: ATTEND Family Medicine
DX: Z12.11 Encounter for screening for malignant neoplasm of colon (principal); D12.3 Benign neoplasm of transverse colon; K63.5 Polyp of colon; K57.30 Diverticulosis of large intestine without perforation or abscess without bleeding; K64.4 Residual hemorrhoidal skin tags; I11.0 Hypertensive heart disease with heart failure; I50.9 Heart failure, unspecified; E78.5 Hyperlipidemia, unspecified; E11.9 Type 2 diabetes mellitus without complications; I48.91 Unspecified atrial fibrillation; K21.9 Gastro-esophageal reflux disease without esophagitis; G47.33 Obstructive sleep apnea (adult) (pediatric); N40.0 Benign prostatic hyperplasia without lower urinary tract symptoms; E66.9 Obesity, unspecified; Z68.41 Body mass index [BMI] 40.0-44.9, adult; Z86.010 Personal history of colon polyps; Z79.01 Long term (current) use of anticoagulants; Z79.899 Other long term (current) drug therapy; Z95.2 Presence of prosthetic heart valve
CPT/HCPCS: 00812; 36415; 45380; 85610; J2704; J7120

== ENCOUNTER 2019-08-01 10:07 | Emergency (ER) | payer MEDICARE, BC ==
[2019-08-01 10:11] VITALS: BP 138/70; PULSE 68
--- NOTE | 2019-08-01 10:46 | EDM.PDOC ---
ED HPI GENERAL MEDICAL PROBLEM - General Chief Complaint: General Stated Complaint: leg swelling and foot pain with redness Time Seen by Provider: 08/01/19 10:46 Source of Information: Reports: Patient History Limitations: Reports: No Limitations - History of Present Illness INITIAL COMMENTS - FREE TEXT/NARRATIVE: Parag is a 69 yo male who presents to the ED with c/o discoloration to his left lower extremity. Reports he first noticed it about 2 months ago. There have been no changes since then. He reports chronic pain with ambulation in his ankles, knees and hips, nothing acute. Denies any numbness, tingling, fever, warmth, redness. No decreased ROM. No injury to area. Does have chronic swelling , which is at baseline. He recently returned home from 2 months in [place]. Is on coumadin for a fib and heart valve. Has not had his INR checked in 2 months. Onset Date: 05/29/19 Duration: Chronic Location: Reports: Lower Extremity, Left Associated Symptoms: Reports: No Other Symptoms. Denies: Confusion, Chest Pain , Cough, cough w sputum, Diaphoresis, Fever/Chills, Headaches, Loss of Appetite , Malaise, Nausea/Vomiting, Rash, Seizure, Shortness of Breath, Syncope, Weakness Treatments ECG TECHNICIAN: Reports: Other (see below) (Coumadin) Left Lower Foot Pain Score (Numeric/FACES): 6 - Related Data Allergies Allergy/AdvReac Type Severity Reaction Status Date / Time No Known Allergies Allergy Verified 08/01/19 10:14 Home Meds: Home Meds Simvastatin 20 mg PO BEDTIME 10/17/13 [History] Tamsulosin HCl 0.4 mg PO DAILY 10/17/13 [History] Losartan Potassium 25 mg PO DAILY 04/13/15 [History] Spironolactone [Aldactone] 25 mg PO DAILY 04/13/15 [History] carvediloL [Carvedilol] 6.25 mg PO BID 04/13/15 [History] Warfarin Sodium 10 mg PO MOTUWETHSA 09/02/16 [History] Warfarin Sodium 7.5 mg PO SUFR 04/15/19 [History] Past Medical History Cardiovascular History: Reports: Afib, Heart Valve Replacement, High Cholesterol , Hypertension Respiratory History: Reports: Sleep Apnea Other Respiratory History: Use Bipap Endocrine/Metabolic History: Reports: Diabetes, Type II - Past Surgical History HEENT Surgical History: Reports: Tonsillectomy Other HEENT Surgeries/Procedures: 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 Cardiovascular Surgical History: Reports: Valve Replacement Other Musculoskeletal Surgeries/Procedures:: KNEE TROUBLE-CORTISONE SHOTS ARTHRITIS Social & Family History - Family History Family Medical History: Noncontributory - Tobacco Use Smoking Status *Q: Never Smoker Second Hand Smoke Exposure: No - Caffeine Use Caffeine Use: Reports: None - Recreational Drug Use Recreational Drug Use: No ED ROS GENERAL - Review of Systems Review Of Systems: Comprehensive ROS is negative, except as noted in HPI. ED EXAM, GENERAL - Physical Exam Exam: See Below Exam Limited By: No Limitations General Appearance: Alert, WD/WN, No Apparent Distress Neck: Normal Inspection, Supple, Non-Tender, Full Range of Motion Respiratory/Chest: No Respiratory Distress, Lungs Clear, Normal Breath Sounds, No Accessory Muscle Use, Chest Non-Tender Cardiovascular: Normal Peripheral Pulses, Regular Rate, Rhythm, Systolic Murmur Peripheral Pulses: 1+: Posterior Tibial (L), Posterior Tibial (R), Dorsalis Pedis (L), Dorsalis Pedis (R) GI/Abdominal: Normal Bowel Sounds, Soft, Non-Tender, No Organomegaly, No Distention, No Abnormal Bruit, No Mass Extremities: Normal Range of Motion, Non-Tender, Normal Capillary Refill, Pedal Edema (1+ pitting LLE), Other (hyperpigmentation to anterior aspect of LLE). No : Saurav's Sign, Leg Pain, Limited Range of Motion, Increased Warmth, Mottled, Pallor, Redness Neurological: Alert, Oriented, CN II-XII Intact, Normal Cognition, Normal Gait, Normal Reflexes, No Motor/Sensory Deficits Psychiatric: Normal Affect, Normal Mood Skin Exam: Warm, Dry, No Rash, Other (stasis dermatitis to anterior LLE, scabs noted to BLE without evidence of infection) Course - Vital Signs Last Recorded V/S: Last Vital Signs Temp 96.0 F L 08/01/19 10:09 Pulse 68 08/01/19 10:09 Resp 18 08/01/19 10:09 BP 138/70 08/01/19 10:09 Pulse Ox 96 08/01/19 10:09 - Orders/Labs/Meds Labs: Laboratory Tests 08/01/19 08/01/19 08/01/19 Range/Units 10:21 10:22 10:23 WBC 8.8 (5.0-10.0) 10^3/uL RBC 4.29 L (4.50-6.00) 10^6/uL Hgb 13.5 L (14.0-18.0) g/dL Hct 41.6 (40.0-54.0) % MCV 97.0 H (82.0-94.0) fL MCH 31.5 (27.0-32.0) pg MCHC 32.5 L (33.0-38.0) g/dL RDW Coeff of Rena 13.9 (11.0-15.0) % Plt Count 192 (150-400) 10^3/uL Neut % (Auto) 76.5 (35-85) % Lymph % (Auto) 12.3 (10-55) % [place] % (Auto) 7.9 (0-16) % Eos % (Auto) 2.8 (0-5) % Baso % (Auto) 0.5 (0-3) % Neut # (Auto) 6.75 (1.80-7.00) 10^3/uL Lymph # (Auto) 1.09 (1.00-4.80) 10^3/uL [place] # (Auto) 0.70 (0.00-0.80) 10^3/uL Eos # (Auto) 0.25 (0.00-0.45) 10^3/uL Baso # (Auto) 0.04 10^3/uL PT 20.8 H (9.7-12.3) SEC INR 2.07 H (0.92-1.18) Sodium 140 (136-145) mEq/L Potassium 4.8 (3.5-5.0) mEq/L Chloride 105 (98-106) mEq/L Carbon Dioxide 29 (21-32) mmol/L BUN 31 H (7-18) mg/dL Creatinine 1.2 (0.7-1.3) mg/dL Est Cr Clr Drug Dosing 48.08 mL/min Estimated GFR (MDRD) > 60 (>=60) mL/min Glucose 100 H (75-99) mg/dL Calcium 9.3 (8.4-10.1) mg/dL C-Reactive Protein 0.8 (0.2-0.8) mg/dL - Re-Assessments/Exams Free Text/Narrative Re-Assessment/Exam: Dr. Wilson did also examine patient and agreed with assessment/diagnosis. Departure - Departure Time of Disposition: 11:13 Disposition: Home, Self-Care 01 Condition: Good Clinical Impression: Chronic stasis dermatitis of left lower extremity - Discharge Information *PRESCRIPTION DRUG MONITORING PROGRAM REVIEWED*: Not Applicable *COPY OF PRESCRIPTION DRUG MONITORING REPORT IN PATIENT DENISA: Not Applicable Instructions: Stasis Dermatitis Referrals: PCP,Unknown [Primary Care Provider] - Forms: ED Department Discharge Additional Instructions: - Continue current dose Coumadin - Recheck INR 4 weeks - Manage swelling in legs to prevent further discoloration. Low sodium diet. Elevate legs when able. - Follow up with PCP as needed - Return to ED for emergent needs - Self quarantine 14 days Sepsis Event Note - Evaluation Sepsis Screening Result: No Definite Risk - Focused Exam Vital Signs: Vital Signs Temp Pulse Resp BP Pulse Ox 08/01/19 10:09 96.0 F L 68 18 138/70 96 Date Exam was Performed: 08/01/19 Time Exam was Performed: 11:18
[2019-08-01 10:57] LABS: CHLORIDE,CL 105 mEq/L (98-106); SODIUM,NA 140 mEq/L (136-145)
== END 2019-08-01 11:23 | disposition home or self-care (01) ==
LOC: CC.ED 10:07
DX: I87.2 Venous insufficiency (chronic) (peripheral) (principal); I48.91 Unspecified atrial fibrillation; E78.00 Pure hypercholesterolemia, unspecified; I10 Essential (primary) hypertension; E11.9 Type 2 diabetes mellitus without complications; Z79.899 Other long term (current) drug therapy
CPT/HCPCS: 36415; 80048; 85025; 85610; 86140; 99283

== ENCOUNTER 2019-10-16 15:27 | Emergency (ER) | payer MEDICARE, BC ==
[2019-10-16] MEDS ORDERED: Acetaminophen/HYDROcodone 325-5 MG Tab PO ONE (15:28)
[2019-10-16 15:30] VITALS: BP 148/62; PULSE 61
--- NOTE | 2019-10-16 15:36 | EDM.PDOC ---
ED HPI GENERAL MEDICAL PROBLEM - General Chief Complaint: Lower Extremity Injury/Pain Stated Complaint: L knee/leg pain Time Seen by Provider: 10/16/19 15:31 Source of Information: Reports: Patient History Limitations: Reports: No Limitations - History of Present Illness INITIAL COMMENTS - FREE TEXT/NARRATIVE: Patient to the emergency department complaining of left knee pain and swelling. The patient vies he was out mowing the grass yesterday on a riding lawnmower and he did have some discomfort last night but then today after mowing the grass he had more discomfort and he feels crepitation with ambulating. The patient is unsure of any injury or trauma. The patient denies any ankle pain denies any hip pain denies any back pain denies any numbness or tingling. There is no redness there is some mild swelling. Denies any other symptoms Onset: Gradual Duration: Day(s): (As above) Location: Reports: Lower Extremity, Left (Left knee) Quality: Reports: Ache Severity: Moderate Improves with: Reports: None Worsens with: Reports: Movement Context: Reports: Other (Unsure of any injury or trauma) Associated Symptoms: Denies: Nausea/Vomiting, Weakness Treatments HOLLOW WARE MAKER: Reports: Other (see below) (none) Left Knee Pain Score (Numeric/FACES): 7 - Related Data Allergies Allergy/AdvReac Type Severity Reaction Status Date / Time No Known Allergies Allergy Verified 10/16/19 15:30 Home Meds: Home Meds Simvastatin 20 mg PO BEDTIME 10/17/13 [History] Tamsulosin HCl 0.4 mg PO DAILY 10/17/13 [History] Losartan Potassium 25 mg PO DAILY 04/13/15 [History] Spironolactone [Aldactone] 25 mg PO DAILY 04/13/15 [History] carvediloL [Carvedilol] 6.25 mg PO BID 04/13/15 [History] Warfarin Sodium 10 mg PO MOTUWETHSA 09/02/16 [History] Warfarin Sodium 7.5 mg PO SUFR 04/15/19 [History] Ketorolac [Toradol] 10 mg PO TID PRN 5 Days #15 tab 10/16/19 [Rx] Past Medical History Cardiovascular History: Reports: Afib, Heart Valve Replacement, High Cholesterol, Hypertension Respiratory History: Reports: Sleep Apnea Other Respiratory History: Use Bipap Endocrine/Metabolic History: Reports: Diabetes, Type II - Past Surgical History HEENT Surgical History: Reports: Tonsillectomy Other HEENT Surgeries/Procedures: 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 Cardiovascular Surgical History: Reports: Valve Replacement Other Musculoskeletal Surgeries/Procedures:: KNEE TROUBLE-CORTISONE SHOTS ARTHRITIS Social & Family History - Family History Family Medical History: Noncontributory - Tobacco Use Smoking Status *Q: Never Smoker - Caffeine Use Caffeine Use: Reports: Soda - Recreational Drug Use Recreational Drug Use: No Review of Systems - Review of Systems Review Of Systems: See Below Constitutional: Reports: No Symptoms Eyes: Reports: No Symptoms Ears: Reports: No Symptoms Nose: Reports: No Symptoms Mouth/Throat: Reports: No Symptoms Respiratory: Reports: No Symptoms Cardiovascular: Reports: No Symptoms GI/Abdominal: Reports: No Symptoms. Denies: Nausea, Vomiting Musculoskeletal: Reports: Joint Pain, Joint Swelling (Left knee pain left knee swelling) Skin: Reports: No Symptoms. Denies: Bruising, Rash, Erythema Neurological: Reports: No Symptoms. Denies: Numbness, Tingling ED EXAM, GENERAL - Physical Exam Exam: See Below Exam Limited By: No Limitations General Appearance: Alert, WD/WN, No Apparent Distress Head: Atraumatic, Normocephalic Neck: Normal Inspection, Supple, Non-Tender, Full Range of Motion Respiratory/Chest: No Respiratory Distress, Lungs Clear, Normal Breath Sounds, Chest Non-Tender Cardiovascular: Normal Peripheral Pulses, Regular Rate, Rhythm, No Murmur Peripheral Pulses: 2+: Radial (L), Posterior Tibial (L), Posterior Tibial (R) GI/Abdominal: Soft, Non-Tender Back Exam: Normal Inspection, Full Range of Motion Extremities: Normal Range of Motion, Normal Capillary Refill, Joint Swelling (Left knee pain and swelling no redness) Neurological: Alert, Oriented, Normal Cognition, No Motor/Sensory Deficits Psychiatric: Normal Affect, Normal Mood Skin Exam: Warm, Dry, Intact, Normal Color ED TRAUMA EXTREMITY PROCEDURES - Splinting Left Lower Extremity Splint Site: Left knee Pre-Procedure NV Status: Normal Post-Procedure NV Status: Normal Splint Material: Other (Throughout) Splint Design: Other (Isma wrap) Applied & Form Fitted By: Nurse Provider Post-Splint Application NV Check: NV Status Normal Complications: No Course - Vital Signs Text/Narrative:: The patient was evaluated in the emergency department, x-ray of the left knee was obtained which shows a joint effusion and a lot of degenerative changes no definite fracture seen. An Isma wrap will be placed to the patient's left knee, the patient will be advised to follow [facility] protocol. The patient be given [place] 5/325 mg 1 every 6 hours needed for pain #4 to go. He also be given a prescription for Toradol 1 tab 3 times daily as needed he is also advised to follow-up with Dr. wilson this week for further evaluation and treatment and possible referral to an orthopedic doctor. He is to return to emergency department sooner for worsening problems Last Recorded V/S: Last Vital Signs Temp 37.1 C 10/16/19 15:27 Pulse 61 10/16/19 15:27 Resp 18 10/16/19 15:27 BP 148/62 H 10/16/19 15:27 Pulse Ox 97 10/16/19 15:27 - Orders/Labs/Meds Orders: Active Orders 24 hr Category Date Time Status Isma Bandage [RC] ONETIME Care 10/16/19 16:49 Ordered Knee Min 4V Lt [CR] Stat Exams 10/16/19 15:32 Ordered Meds: Medications Discontinued Medications Generic Name Dose Route Start Last Admin Trade Name Freq PRN Reason Stop Dose Admin Hydrocodone Bitart/Acetaminophen 2 packet 10/16/19 16:49 Take Home: Acetaminophen/Hydrocod, 2 Tab Pack PO 10/16/19 16:50 ONETIME ONE Departure - Departure Time of Disposition: 16:46 Disposition: Home, Self-Care 01 Condition: Good Clinical Impression: Left knee sprain, Effusion, left knee - Discharge Information *PRESCRIPTION DRUG MONITORING PROGRAM REVIEWED*: Not Applicable *COPY OF PRESCRIPTION DRUG MONITORING REPORT IN PATIENT DENISA: Not Applicable Prescriptions: Ketorolac [Toradol] 10 mg PO TID PRN 5 Days #15 tab PRN Reason: Pain (Moderate 4-6) Instructions: Knee Sprain, Adult Referrals: PCP,None [Primary Care Provider] - Forms: ED Department Discharge Additional Instructions: Elevate left leg on 2 pillows Ice off-and-on frequently for 2 days Use the Isma wrap as discussed Toradol 10 mg every 8 hours as needed for pain [place] 5/325 mg 1 every 6 hours as needed for pain Follow-up with Dr. Wilson this week for further evaluation and treatment and referral to the orthopedist Return to the emergency department sooner if worse or any problems Sepsis Event Note (ED) - Evaluation Sepsis Screening Result: No Definite Risk - Focused Exam Vital Signs: Vital Signs Temp Pulse Resp BP Pulse Ox 10/16/19 15:27 37.1 C 61 18 148/62 H 97 - Problem List & Annotations (1) Effusion, left knee SNOMED Code(s): 277065740159169 Code(s): M25.462 - EFFUSION, LEFT KNEE Status: Acute Priority: Medium Current Visit: Yes (2) Left knee sprain SNOMED Code(s): 53071439 Code(s): S83.92XA - SPRAIN OF UNSPECIFIED SITE OF LEFT KNEE, INITIAL ENCOUNTER Status: Acute Priority: Medium Current Visit: Yes Qualifiers: Encounter type: initial encounter - Problem List Review Problem List Initiated/Reviewed/Updated: Yes - My Orders Last 24 Hours: My Active Orders 10/16/19 15:32 Knee Min 4V Lt [CR] Stat 10/16/19 16:49 Isma Bandage [RC] ONETIME - Assessment/Plan Last 24 Hours: My Active Orders 10/16/19 15:32 Knee Min 4V Lt [CR] Stat 10/16/19 16:49 Isma Bandage [RC] ONETIME Plan: The patient's past medical history, past surgical history, social history and past family medical history reviewed see the nursing notes for details
[2019-10-16] MEDS: Take Home: Acetaminophen/HYDROcodone 325-5 MG, 2 Tab Pack PO ONE (16:53)
== END 2019-10-16 16:58 | disposition home or self-care (01) ==
LOC: CC.ED 15:27
DX: S83.92XA Sprain of unspecified site of left knee, initial encounter (principal); M25.462 Effusion, left knee; E11.9 Type 2 diabetes mellitus without complications; I10 Essential (primary) hypertension; E78.00 Pure hypercholesterolemia, unspecified; I48.91 Unspecified atrial fibrillation; X50.9XXA Other and unspecified overexertion or strenuous movements or postures, initial encounter
CPT/HCPCS: 73564-LT; 99283; A9270-GY

== ENCOUNTER 2020-01-20 01:28 | Emergency (ER) | payer MEDICARE, BC ==
[2020-01-20] MEDS ORDERED: Acetaminophen 500 MG Tab PO ONE (02:06)
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
[2020-01-20 02:28] LABS: CHLORIDE,CL 100 mEq/L (98-106); SODIUM,NA 134 mEq/L (136-145)
[2020-01-20 02:43] LABS: PTT,PARTIAL THROMBOPLSTIN TIME 58.1 SEC (23.2-32.3)
[2020-01-20] MEDS ORDERED: Dexamethasone 4 MG Tab PO ONE (03:06)
[2020-01-20 04:53] VITALS: BP 101/53; PULSE 64
== END 2020-01-20 04:43 ==
LOC: CC.ED 01:29
DX: U07.1 COVID-19 (principal); I48.91 Unspecified atrial fibrillation; E78.00 Pure hypercholesterolemia, unspecified; I10 Essential (primary) hypertension; E11.9 Type 2 diabetes mellitus without complications; Z79.01 Long term (current) use of anticoagulants; Z79.899 Other long term (current) drug therapy
CPT/HCPCS: 36415; 71046; 80053; 83605; 83880; 85025; 85379; 85610; 85730; 86140; 87804; 93005; 99285-25; A9270-GY; J8540; U0002

== ENCOUNTER 2020-02-29 10:40 | Inpatient (IN) | payer MEDICARE, BC ==
[2020-02-29 11:17] LABS: CHLORIDE,CL 96 mEq/L (98-106); SODIUM,NA 131 mEq/L (136-145)
[2020-02-29] MEDS ORDERED: Ondansetron 4 MG/2 ML SDV IV PRN (12:16)
[2020-02-29] MEDS ORDERED: Acetaminophen 325 MG Tab PO PRN (12:16)
[2020-02-29] MEDS ORDERED: Ondansetron 4 MG Tab.DIS PO PRN (12:16)
[2020-02-29] MEDS ORDERED: Acetaminophen 325 MG Tab PO ONE (12:17)
[2020-02-29] MEDS ORDERED: Iopamidol 755 Mg/ML 100 ML Bottle IVPUSH ONE (12:22)
[2020-02-29] MEDS: Sodium Chloride 0.9% 1,000 ML IV SCH ×2 (13:32→19:47)
[2020-02-29] MEDS: Azithromycin 500 MG in Sodium Chloride 0.9% 250 ML IV SCH (13:37)
[2020-02-29] MEDS ORDERED: methylPREDNISolone Sodium Succinate 125 MG/2 ML SDV IVPUSH ONE (14:30)
[2020-02-29] MEDS: cefTRIAXone 1 GM Vial IVPUSH SCH (15:00)
[2020-02-29] MEDS: Simvastatin 20 MG Tab PO SCH (19:52)
[2020-02-29] MEDS: Tamsulosin 0.4 MG Cap.ER PO SCH (19:52)
[2020-02-29] MEDS: Carvedilol 3.125 MG Tab PO SCH (19:56)
[2020-02-29] MEDS ORDERED: Warfarin 5 MG Tab PO SCH (20:00)
[2020-03-01] MEDS: Sodium Chloride 0.9% 1,000 ML IV SCH (05:00)
[2020-03-01 07:41] LABS: CHLORIDE,CL 101 mEq/L (98-106); SODIUM,NA 134 mEq/L (136-145)
[2020-03-01] MEDS: methylPREDNISolone Sodium Succinate 125 MG/2 ML SDV IVPUSH SCH ×2 (07:57→19:32)
[2020-03-01] MEDS: Spironolactone 25 MG Tab PO SCH (08:01)
[2020-03-01] MEDS: Losartan 25 MG Tab PO SCH (08:02)
[2020-03-01] MEDS: Carvedilol 3.125 MG Tab PO SCH ×2 (08:03→19:29)
--- NOTE | 2020-03-01 08:06 | PCM.PN ---
- General Info Date of Service: 03/01/20 Admission Dx/Problem (Free Text): Parag is a a 69 yo male who was direct admitted to the hospital from the clinic yesterday secondary to influenza B with concerns of infiltrate to the RLLL. Patient was started on IV antibiotics, fluids. Functional Status: Reports: Pain Controlled, Tolerating Diet, Ambulating - Review of Systems General: Reports: Fatigue. Denies: Fever, Chills HEENT: Reports: No Symptoms Pulmonary: Reports: Cough (dry). Denies: Shortness of Breath Cardiovascular: Reports: No Symptoms Gastrointestinal: Reports: No Symptoms Genitourinary: Reports: No Symptoms Skin: Reports: No Symptoms Neurological: Reports: No Symptoms Psychiatric: Reports: No Symptoms - Patient Data Vitals - Most Recent: Last Vital Signs Temp 98.7 F 03/01/20 04:00 Pulse 79 03/01/20 04:00 Resp 20 03/01/20 04:00 BP 118/72 03/01/20 04:00 Pulse Ox 94 L 03/01/20 04:00 Weight - Most Recent: 244 lb 3.2 oz I&O - Last 24 Hours: Intake & Output 02/29/20 03/01/20 03/01/20 22:59 06:59 14:59 Intake Total 625 922 Balance 625 922 Lab Results Last 24 Hours: Laboratory Results - last 24 hr 02/29/20 02/29/20 02/29/20 Range/Units 10:52 10:52 10:52 WBC 32.4 H* (5.0-10.0) 10^3/uL RBC 2.99 L (4.50-6.00) 10^6/uL Hgb 9.2 L (14.0-18.0) g/dL Hct 29.3 L (40.0-54.0) % MCV 98.0 H (82.0-94.0) fL MCH 30.8 (27.0-32.0) pg MCHC 31.4 L (33.0-38.0) g/dL RDW Coeff of Rena 17.2 H (11.0-15.0) % Plt Count 379 (150-400) 10^3/uL Add Manual Diff Yes Neutrophils % (Manual) 95 H (35-85) % Band Neutrophils % (0-5) % Lymphocytes % (Manual) 4 L (21-55) % Monocytes % (Manual) 1 L (2-12) % Absolute Neutrophils 30.78 H (1.80-7.00) 10^3/uL Lymphocytes # (Manual) 1.30 (1.00-4.80) 10^3/uL Monocytes # (Manual) 0.32 (0.00-0.80) 10^3/uL PT 11.9 (9.7-12.3) SEC INR 1.18 (0.92-1.18) D-Dimer, Quantitative 1.39 H (0.00-0.50) Sodium 131 L (136-145) mEq/L Potassium 5.2 H (3.5-5.0) mEq/L Chloride 96 L (98-106) mEq/L Carbon Dioxide 26 (21-32) mmol/L BUN 18 (7-18) mg/dL Creatinine 1.5 H (0.7-1.3) mg/dL Est Cr Clr Drug Dosing TNP Estimated GFR (MDRD) 47 L (>=60) mL/min Glucose 141 H (75-99) mg/dL Lactic Acid (0.4-2.0) mmol/L Calcium 8.7 (8.4-10.1) mg/dL Total Bilirubin 1.7 H (0.0-1.0) mg/dL AST 26 (15-37) U/L ALT 22 (12-78) U/L Alkaline Phosphatase 62 (46-116) U/L C-Reactive Protein 15.1 H (0.2-0.8) mg/dL Total Protein 6.4 (6.4-8.2) g/dL Albumin 2.6 L (3.4-5.0) g/dL Urine Color (YELLOW) Urine Appearance (CLEAR) Urine pH (4.5-8.0) Ur Specific [place] (1.003-1.020) Urine Protein (NEGATIVE) mg/dL Urine Glucose (UA) (NEGATIVE) mg/dL Urine Ketones (NEGATIVE) mg/dL Urine Occult Blood (NEGATIVE) Urine Nitrite (NEGATIVE) Urine Bilirubin (NEGATIVE) Urine Urobilinogen (0.2-1.0) EU/dL Ur Leukocyte Esterase (NEGATIVE) 02/29/20 03/01/20 03/01/20 Range/Units 13:15 05:24 07:05 WBC (5.0-10.0) 10^3/uL RBC (4.50-6.00) 10^6/uL Hgb (14.0-18.0) g/dL Hct (40.0-54.0) % MCV (82.0-94.0) fL MCH (27.0-32.0) pg MCHC (33.0-38.0) g/dL RDW Coeff of Rena (11.0-15.0) % Plt Count (150-400) 10^3/uL Add Manual Diff Neutrophils % (Manual) (35-85) % Band Neutrophils % (0-5) % Lymphocytes % (Manual) (21-55) % Monocytes % (Manual) (2-12) % Absolute Neutrophils (1.80-7.00) 10^3/uL Lymphocytes # (Manual) (1.00-4.80) 10^3/uL Monocytes # (Manual) (0.00-0.80) 10^3/uL PT (9.7-12.3) SEC INR (0.92-1.18) D-Dimer, Quantitative (0.00-0.50) Sodium (136-145) mEq/L Potassium (3.5-5.0) mEq/L Chloride (98-106) mEq/L Carbon Dioxide (21-32) mmol/L BUN (7-18) mg/dL Creatinine (0.7-1.3) mg/dL Est Cr Clr Drug Dosing Estimated GFR (MDRD) (>=60) mL/min Glucose (75-99) mg/dL Lactic Acid 3.8 H 1.0 (0.4-2.0) mmol/L Calcium (8.4-10.1) mg/dL Total Bilirubin (0.0-1.0) mg/dL AST (15-37) U/L ALT (12-78) U/L Alkaline Phosphatase (46-116) U/L C-Reactive Protein (0.2-0.8) mg/dL Total Protein (6.4-8.2) g/dL Albumin (3.4-5.0) g/dL Urine Color Yellow (YELLOW) Urine Appearance Clear (CLEAR) Urine pH 5.5 (4.5-8.0) Ur Specific [place] 1.025 H (1.003-1.020) Urine Protein Negative (NEGATIVE) mg/dL Urine Glucose (UA) Negative (NEGATIVE) mg/dL Urine Ketones Negative (NEGATIVE) mg/dL Urine Occult Blood Negative (NEGATIVE) Urine Nitrite Negative (NEGATIVE) Urine Bilirubin Negative (NEGATIVE) Urine Urobilinogen 0.2 (0.2-1.0) EU/dL Ur Leukocyte Esterase Negative (NEGATIVE) 03/01/20 03/01/20 03/01/20 Range/Units 07:05 07:05 07:05 WBC 20.8 H* (5.0-10.0) 10^3/uL RBC 2.65 L (4.50-6.00) 10^6/uL Hgb 8.1 L (14.0-18.0) g/dL Hct 26.1 L (40.0-54.0) % MCV 98.5 H (82.0-94.0) fL MCH 30.6 (27.0-32.0) pg MCHC 31.0 L (33.0-38.0) g/dL RDW Coeff of Rena 16.8 H (11.0-15.0) % Plt Count 308 (150-400) 10^3/uL Add Manual Diff Yes Neutrophils % (Manual) 88 H (35-85) % Band Neutrophils % 9 H (0-5) % Lymphocytes % (Manual) 2 L (21-55) % Monocytes % (Manual) 1 L (2-12) % Absolute Neutrophils (1.80-7.00) 10^3/uL Lymphocytes # (Manual) (1.00-4.80) 10^3/uL Monocytes # (Manual) (0.00-0.80) 10^3/uL PT 11.2 (9.7-12.3) SEC INR 1.11 (0.92-1.18) D-Dimer, Quantitative (0.00-0.50) Sodium 134 L (136-145) mEq/L Potassium 4.7 (3.5-5.0) mEq/L Chloride 101 (98-106) mEq/L Carbon Dioxide 26 (21-32) mmol/L BUN 17 (7-18) mg/dL Creatinine 1.0 (0.7-1.3) mg/dL Est Cr Clr Drug Dosing 57.69 Estimated GFR (MDRD) > 60 (>=60) mL/min Glucose 172 H (75-99) mg/dL Lactic Acid (0.4-2.0) mmol/L Calcium 8.4 (8.4-10.1) mg/dL Total Bilirubin (0.0-1.0) mg/dL AST (15-37) U/L ALT (12-78) U/L Alkaline Phosphatase (46-116) U/L C-Reactive Protein 15.5 H (0.2-0.8) mg/dL Total Protein (6.4-8.2) g/dL Albumin (3.4-5.0) g/dL Urine Color (YELLOW) Urine Appearance (CLEAR) Urine pH (4.5-8.0) Ur Specific [place] (1.003-1.020) Urine Protein (NEGATIVE) mg/dL Urine Glucose (UA) (NEGATIVE) mg/dL Urine Ketones (NEGATIVE) mg/dL Urine Occult Blood (NEGATIVE) Urine Nitrite (NEGATIVE) Urine Bilirubin (NEGATIVE) Urine Urobilinogen (0.2-1.0) EU/dL Ur Leukocyte Esterase (NEGATIVE) Jamie Results Last 24 Hours: Microbiology 02/29/20 11:03 Influenza Type A Antigen Screen - Final Nasopharyngeal Swab NEGATIVE INFLUENZA A VIRUS AG REFERENCE RANGE: NEGATIVE Influenza Type B Antigen Screen - Final Positive Influenza B Ag Med Orders - Current: Current Medications Acetaminophen (Tylenol) 650 mg PO Q4H PRN PRN Reason: Pain (Mild 1-3)/fever Last Admin: 02/29/20 13:31 Dose: 650 mg Documented by: Carvedilol (Coreg) 6.25 mg PO BID [facility] Last Admin: 02/29/20 19:56 Dose: Not Given Documented by: Ceftriaxone Sodium (Rocephin) 1 gm IVPUSH Q24H [facility] Last Admin: 02/29/20 15:00 Dose: 1 gm Documented by: Azithromycin 500 mg/ Sodium (Chloride) 250 mls @ 250 mls/hr IV Q24H [facility] Last Admin: 02/29/20 13:37 Dose: 250 mls/hr Documented by: Losartan Potassium (Cozaar) 25 mg PO DAILY [facility] Methylprednisolone Sodium Succinate (Solu-Medrol) 125 mg IVPUSH BID [facility] Last Admin: 03/01/20 07:57 Dose: 125 mg Documented by: Ondansetron HCl (Zofran Odt) 4 mg PO Q4H PRN PRN Reason: nausea, able to take PO Ondansetron HCl (Zofran) 4 mg IV Q4H PRN PRN Reason: Nausea/Vomiting Simvastatin (Zocor) 20 mg PO BEDTIME [facility] Last Admin: 02/29/20 19:52 Dose: 20 mg Documented by: Spironolactone (Aldactone) 25 mg PO DAILY [facility] Tamsulosin HCl (Flomax) 0.4 mg PO BEDTIME [facility] Last Admin: 02/29/20 19:52 Dose: 0.4 mg Documented by: Warfarin Sodium (Coumadin) 5 mg PO [email or web address] [facility] Last Admin: 02/29/20 19:52 Dose: 5 mg Documented by: Warfarin Sodium (Coumadin) 2.5 mg PO [email or web address] [facility] Discontinued Medications Acetaminophen (Tylenol) 650 mg PO NOW ONE Stop: 02/29/20 12:18 Last Admin: 02/29/20 14:05 Dose: Not Given Documented by: Sodium Chloride (Normal Saline) 1,000 mls @ 100 mls/hr IV ASDIRECTED [facility] Last Admin: 03/01/20 05:00 Dose: 100 mls/hr Documented by: Iopamidol ([id number] (76%)) 100 ml IVPUSH ONETIME ONE Stop: 02/29/20 12:23 Last Admin: 02/29/20 12:53 Dose: 100 ml Documented by: Methylprednisolone Sodium Succinate (Solu-Medrol) 125 mg IVPUSH ONETIME ONE Stop: 02/29/20 14:31 Last Admin: 02/29/20 14:55 Dose: 125 mg Documented by: - Exam General: Alert, Oriented, Cooperative, No Acute Distress Neck: Supple Lungs: Decreased Breath Sounds. No: Crackles, Rales, Rhonchi, Wheezing Cardiovascular: Regular Rate, Regular Rhythm, Murmurs GI/Abdominal Exam: Normal Bowel Sounds, Soft, No Organomegaly, No Mass Extremities: Normal Inspection, Pedal Edema (1+ bilaterally) Skin: Warm, Dry, Intact Neurological: No New Focal Deficit Psy/Mental Status: Alert, Normal Affect, Normal Mood Sepsis Event Note - Evaluation Sepsis Screening Result: Severe Sepsis Risk - Focused Exam Vital Signs: Vital Signs Temp Pulse Resp BP Pulse Ox 03/01/20 04:00 98.7 F 79 20 118/72 94 L 02/29/20 23:30 97.3 F 85 20 120/57 L 95 - Problem List & Annotations (1) Influenza B SNOMED Code(s): 58744185 Code(s): J10.1 - FLU DUE TO OTH IDENT INFLUENZA VIRUS W OTH RESP MANIFEST Status: Acute Current Visit: Yes (2) Right lower lobe pneumonia SNOMED Code(s): 104247826 Code(s): J18.9 - PNEUMONIA, UNSPECIFIED ORGANISM Status: Acute Current Visit: Yes Qualifiers: Pneumonia type: due to unspecified organism Qualified Code(s): J18.9 - Pneumonia, unspecified organism - Problem List Review Problem List Initiated/Reviewed/Updated: Yes - Plan Plan:: Parag has shown significant improvement today. Admits to feeling a lot better this morning. Hasn't had any fevers through out the night. States he has been up ambulating and denies any shortness of breath. Feels he got a good night rest last night. WBC has significantly improved. Lactic acid with in normal limits today. INR continues to be low and will give extra dose of Coumadin today. Will repeat labs in the am. Tamiflu to be started today. Will continue IV antibiotics at this time with secondary pneumonia.
[2020-03-01] MEDS ORDERED: Warfarin 5 MG Tab PO ONE (08:30)
[2020-03-01] MEDS: Oseltamivir 75 MG Cap PO SCH ×2 (08:36→19:31)
[2020-03-01] MEDS: Azithromycin 500 MG in Sodium Chloride 0.9% 250 ML IV SCH (12:54)
[2020-03-01] MEDS: cefTRIAXone 1 GM Vial IVPUSH SCH (15:24)
[2020-03-01] MEDS: Tamsulosin 0.4 MG Cap.ER PO SCH (19:30)
[2020-03-01] MEDS: Simvastatin 20 MG Tab PO SCH (19:31)
[2020-03-01] MEDS ORDERED: Warfarin 2.5 MG Tab PO SCH (20:00)
[2020-03-02 07:37] LABS: CHLORIDE,CL 101 mEq/L (98-106); SODIUM,NA 133 mEq/L (136-145)
[2020-03-02 07:59] VITALS: BP 97/54; PULSE 77
[2020-03-02] MEDS: Spironolactone 25 MG Tab PO SCH (08:03)
[2020-03-02] MEDS: Oseltamivir 75 MG Cap PO SCH (08:03)
[2020-03-02] MEDS: Losartan 25 MG Tab PO SCH (08:03)
[2020-03-02] MEDS: methylPREDNISolone Sodium Succinate 125 MG/2 ML SDV IVPUSH SCH (08:04)
[2020-03-02] MEDS: Carvedilol 3.125 MG Tab PO SCH (08:14)
[2020-03-02] MEDS: Azithromycin 500 MG in Sodium Chloride 0.9% 250 ML IV SCH (08:15)
[2020-03-02] MEDS: cefTRIAXone 1 GM Vial IVPUSH SCH (10:06)
--- NOTE | 2020-03-02 12:35 | PCM.DCSUM1 ---
Discharge Summary - Hospital Course HPI Initial Comments: Parag is a 69 yo male who was admitted to the hospital on the 28 of February with influenza B and RLL pneumonia. Was started on IV antibiotics. WBC, CRP and lactic acid were elevated on admission. Blood cultures were ordered. Diagnosis: Stroke: No - Discharge Data Discharge Date: 03/02/20 Discharge Disposition: Home, Self-Care 01 Condition: Good - Referral to Home Health Primary Care Physician: KELLY Sears - Discharge Diagnosis/Problem(s) (1) Influenza B SNOMED Code(s): 52979010 ICD Code: J10.1 - FLU DUE TO OTH IDENT INFLUENZA VIRUS W OTH RESP MANIFEST Status: Acute (2) Right lower lobe pneumonia SNOMED Code(s): 048258950 ICD Code: J18.9 - PNEUMONIA, UNSPECIFIED ORGANISM Status: Acute Qualifiers: Pneumonia type: due to unspecified organism Qualified Code(s): J18.9 - Pneumonia, unspecified organism - Patient Instructions Diet: Usual Diet as Tolerated Activity: As Tolerated Notify Provider of: Fever - Discharge Plan *PRESCRIPTION DRUG MONITORING PROGRAM REVIEWED*: No *COPY OF PRESCRIPTION DRUG MONITORING REPORT IN PATIENT DENISA: No Prescriptions/Med Rec: Cefuroxime Axetil [Ceftin] 500 mg PO BID #14 tablet Oseltamivir Phosphate 75 mg PO BID #8 capsule Home Medications: Home Meds Simvastatin 20 mg PO BEDTIME 10/17/13 [History] Tamsulosin HCl 0.4 mg PO DAILY 10/17/13 [History] Losartan Potassium 25 mg PO DAILY 04/13/15 [History] Spironolactone [Aldactone] 25 mg PO DAILY 04/13/15 [History] carvediloL [Carvedilol] 6.25 mg PO BID 04/13/15 [History] Cefuroxime Axetil [Ceftin] 500 mg PO BID #14 tablet 03/02/20 [Rx] Oseltamivir Phosphate 75 mg PO BID #8 capsule 03/02/20 [Rx] Warfarin Sodium 2.5 mg PO DAILY #0 03/02/20 [Rx] Oxygen Therapy Mode: Room Air Referrals: Js Wilson MD [ED Physician] - 03/05/20 (Needs CBC, BMP, CRP and INR prior to appointment) - Discharge Summary/Plan Comment DC Time >30 min.: Yes - General Info Date of Service: 03/02/20 Subjective Update: On admission, Parag was given oxygen via nasal canula. Was able to be weaned off of oxygen completely last night. States overall he is feeling well and would like to be discharged. Was started on Tamiflu, IV steroids and antibiotics upon admission. Seen significant improvement with normal lactic acid, decreased WBC and CRP. Functional Status: Reports: Pain Controlled, Tolerating Diet, Ambulating. Denies: New Symptoms - Review of Systems General: Denies: Fever, Weakness, Fatigue HEENT: Reports: No Symptoms Pulmonary: Reports: Cough. Denies: Shortness of Breath Cardiovascular: Reports: No Symptoms Gastrointestinal: Reports: No Symptoms Genitourinary: Reports: No Symptoms Musculoskeletal: Reports: No Symptoms Skin: Reports: No Symptoms Neurological: Reports: No Symptoms - Patient Data Vitals - Most Recent: Last Vital Signs Temp 98.5 F 03/02/20 07:59 Pulse 77 03/02/20 07:59 Resp 20 03/02/20 07:59 BP 97/54 L 03/02/20 08:03 Pulse Ox 94 L 03/02/20 07:59 Weight - Most Recent: 244 lb 3.2 oz Lab Results - Last 24 hrs: Laboratory Results - last 24 hr 03/02/20 03/02/20 03/02/20 Range/Units 07:14 07:14 07:14 WBC 20.9 H* (5.0-10.0) 10^3/uL RBC 2.79 L (4.50-6.00) 10^6/uL Hgb 8.4 L (14.0-18.0) g/dL Hct 27.7 L (40.0-54.0) % MCV 99.3 H (82.0-94.0) fL MCH 30.1 (27.0-32.0) pg MCHC 30.3 L (33.0-38.0) g/dL RDW Coeff of Rena 16.4 H (11.0-15.0) % Plt Count 310 (150-400) 10^3/uL Neut % (Auto) 94.4 H (35-85) % Lymph % (Auto) 2.6 L (10-55) % [place] % (Auto) 2.8 (0-16) % Eos % (Auto) 0 (0-5) % Baso % (Auto) 0.2 (0-3) % Neut # (Auto) 19.68 H (1.80-7.00) 10^3/uL Lymph # (Auto) 0.54 L (1.00-4.80) 10^3/uL [place] # (Auto) 0.58 (0.00-0.80) 10^3/uL Eos # (Auto) 0.01 (0.00-0.45) 10^3/uL Baso # (Auto) 0.05 10^3/uL PT 13.3 H (9.7-12.3) SEC INR 1.32 H (0.92-1.18) Sodium 133 L (136-145) mEq/L Potassium 5.0 (3.5-5.0) mEq/L Chloride 101 (98-106) mEq/L Carbon Dioxide 27 (21-32) mmol/L BUN 20 H (7-18) mg/dL Creatinine 1.0 (0.7-1.3) mg/dL Est Cr Clr Drug Dosing 57.69 mL/min Estimated GFR (MDRD) > 60 (>=60) mL/min Glucose 162 H (75-99) mg/dL Lactic Acid (0.4-2.0) mmol/L Calcium 8.6 (8.4-10.1) mg/dL C-Reactive Protein 7.6 H (0.2-0.8) mg/dL NT-Pro-B Natriuret Pep 2637 H (0-1000) pg/mL 03/02/20 Range/Units 07:14 WBC (5.0-10.0) 10^3/uL RBC (4.50-6.00) 10^6/uL Hgb (14.0-18.0) g/dL Hct (40.0-54.0) % MCV (82.0-94.0) fL MCH (27.0-32.0) pg MCHC (33.0-38.0) g/dL RDW Coeff of Rena (11.0-15.0) % Plt Count (150-400) 10^3/uL Neut % (Auto) (35-85) % Lymph % (Auto) (10-55) % [place] % (Auto) (0-16) % Eos % (Auto) (0-5) % Baso % (Auto) (0-3) % Neut # (Auto) (1.80-7.00) 10^3/uL Lymph # (Auto) (1.00-4.80) 10^3/uL [place] # (Auto) (0.00-0.80) 10^3/uL Eos # (Auto) (0.00-0.45) 10^3/uL Baso # (Auto) 10^3/uL PT (9.7-12.3) SEC INR (0.92-1.18) Sodium (136-145) mEq/L Potassium (3.5-5.0) mEq/L Chloride (98-106) mEq/L Carbon Dioxide (21-32) mmol/L BUN (7-18) mg/dL Creatinine (0.7-1.3) mg/dL Est Cr Clr Drug Dosing mL/min Estimated GFR (MDRD) (>=60) mL/min Glucose (75-99) mg/dL Lactic Acid 1.9 (0.4-2.0) mmol/L Calcium (8.4-10.1) mg/dL C-Reactive Protein (0.2-0.8) mg/dL NT-Pro-B Natriuret Pep (0-1000) pg/mL KATI Results - Last 24 hrs: Microbiology 02/29/20 14:40 Aerobic Blood Culture - Preliminary Blood - Venous - Lab Draw NO GROWTH AFTER 1 DAY Anaerobic Blood Culture - Preliminary NO GROWTH AFTER 1 DAY 02/29/20 14:30 Aerobic Blood Culture - Preliminary Blood - Venous NO GROWTH AFTER 1 DAY Anaerobic Blood Culture - Preliminary NO GROWTH AFTER 1 DAY Med Orders - Current: Current Medications Discontinued Medications Acetaminophen (Tylenol) 650 mg PO NOW ONE Stop: 02/29/20 12:18 Last Admin: 02/29/20 14:05 Dose: Not Given Documented by: Acetaminophen (Tylenol) 650 mg PO Q4H PRN PRN Reason: Pain (Mild 1-3)/fever Last Admin: 02/29/20 13:31 Dose: 650 mg Documented by: Carvedilol (Coreg) 6.25 mg PO BID [facility] Last Admin: 03/02/20 08:14 Dose: Not Given Documented by: Ceftriaxone Sodium (Rocephin) 1 gm IVPUSH Q24H [facility] Last Admin: 03/02/20 10:06 Dose: 1 gm Documented by: Azithromycin 500 mg/ Sodium (Chloride) 250 mls @ 250 mls/hr IV Q24H [facility] Last Admin: 03/02/20 08:15 Dose: 250 mls/hr Documented by: Sodium Chloride (Normal Saline) 1,000 mls @ 100 mls/hr IV ASDIRECTED [facility] Last Admin: 03/01/20 05:00 Dose: 100 mls/hr Documented by: Iopamidol (Isovue-370 (76%)) 100 ml IVPUSH ONETIME ONE Stop: 02/29/20 12:23 Last Admin: 02/29/20 12:53 Dose: 100 ml Documented by: Losartan Potassium (Cozaar) 25 mg PO DAILY [facility] Last Admin: 03/02/20 08:03 Dose: 25 mg Documented by: Methylprednisolone Sodium Succinate (Solu-Medrol) 125 mg IVPUSH ONETIME ONE Stop: 02/29/20 14:31 Last Admin: 02/29/20 14:55 Dose: 125 mg Documented by: Methylprednisolone Sodium Succinate (Solu-Medrol) 125 mg IVPUSH BID [facility] Last Admin: 03/02/20 08:04 Dose: 125 mg Documented by: Ondansetron HCl (Zofran Odt) 4 mg PO Q4H PRN PRN Reason: nausea, able to take PO Ondansetron HCl (Zofran) 4 mg IV Q4H PRN PRN Reason: Nausea/Vomiting Oseltamivir Phosphate (Tamiflu) 75 mg PO BID [facility] Last Admin: 03/02/20 08:03 Dose: 75 mg Documented by: Simvastatin (Zocor) 20 mg PO BEDTIME [facility] Last Admin: 03/01/20 19:31 Dose: 20 mg Documented by: Spironolactone (Aldactone) 25 mg PO DAILY [facility] Last Admin: 03/02/20 08:03 Dose: 25 mg Documented by: Tamsulosin HCl (Flomax) 0.4 mg PO BEDTIME [facility] Last Admin: 03/01/20 19:30 Dose: 0.4 mg Documented by: Warfarin Sodium (Coumadin) 5 mg PO [email or web address] [facility] Last Admin: 02/29/20 19:52 Dose: 5 mg Documented by: Warfarin Sodium (Coumadin) 2.5 mg PO [email or web address] [facility] Last Admin: 12/03/20 19:30 Dose: 2.5 mg Documented by: Warfarin Sodium (Coumadin) 5 mg PO ONETIME ONE Stop: 03/01/20 08:31 Last Admin: 03/01/20 08:37 Dose: 5 mg Documented by: - Exam Quality Assessment: Denies: Supplemental Oxygen General: Reports: Alert, Oriented, Cooperative, No Acute Distress Neck: Reports: Supple Lungs: Reports: Decreased Breath Sounds. Denies: Crackles, Rales, Rhonchi, Wheezing Cardiovascular: Reports: Regular Rate, Regular Rhythm, Murmurs Extremities: Pedal Edema Skin: Reports: Warm, Dry, Intact Neurological: Reports: No New Focal Deficit
== END 2020-03-02 10:49 | disposition home or self-care (01) | DRG 871 ==
LOC: CC.FCMC 10:40 → CC.MS 10:40 → UNDOADMIN 11:39 → CC.MS 11:39
PROVIDERS: ADMIT Physician Assistant Medical; ATTEND Family Medicine
DX: A41.89 Other specified sepsis (principal); J10.00 Influenza due to other identified influenza virus with unspecified type of pneumonia; Z79.01 Long term (current) use of anticoagulants; Z79.899 Other long term (current) drug therapy
CPT/HCPCS: 36415; 71046; 71275; 80048; 80053; 81003; 83605; 83880; 85025; 85379; 85610; 86140; 87040; 87804; A9270-GY; J0456; J0696; J2930; J7030; J7050; Q9967

== ENCOUNTER 2020-03-04 12:48 | Emergency (ER) | payer MEDICARE, BC ==
--- NOTE | 2020-03-04 13:28 | EDM.PDOC ---
ED HPI GENERAL MEDICAL PROBLEM - General Chief Complaint: General Stated Complaint: ABD Pain Time Seen by Provider: 03/04/20 13:22 Source of Information: Reports: Patient History Limitations: Reports: No Limitations - History of Present Illness INITIAL COMMENTS - FREE TEXT/NARRATIVE: This patient is a 69 year old male that presents to the ER. Patient reports that started at 0230am this morning he started having upper abdominal pain that is full and bloating in nature. Patient reports feeling nauseated with it. He reports that he vomited x1. Patient reports that he has not had any gas that he can think of. Patient reports he was admitted to the hospital this past week and discharged Thursday for unrelated issue. Patient reports he was admitted for influenza with pneumonia in RLL. Patient denies fever. Onset: Today Onset Date: 03/04/20 Onset Time: 02:30 Location: Reports: Abdomen Quality: Reports: Other ("bloating, full") Improves with: Reports: None Worsens with: Reports: None Associated Symptoms: Reports: Loss of Appetite, Nausea/Vomiting. Denies: Confusion, Chest Pain, Cough, cough w sputum, Diaphoresis, Fever/Chills, Headaches, Malaise, Rash, Seizure, Shortness of Breath, Syncope, Weakness mid abd Pain Score (Numeric/FACES): 5 - Related Data Allergies Allergy/AdvReac Type Severity Reaction Status Date / Time No Known Allergies Allergy Verified 03/04/20 13:22 Home Meds: Home Meds Simvastatin 20 mg PO BEDTIME 10/17/13 [History] Tamsulosin HCl 0.4 mg PO DAILY 10/17/13 [History] Losartan Potassium 25 mg PO DAILY 04/13/15 [History] Spironolactone [Aldactone] 25 mg PO DAILY 04/13/15 [History] carvediloL [Carvedilol] 6.25 mg PO BID 04/13/15 [History] Cefuroxime Axetil [Ceftin] 500 mg PO BID #14 tablet 03/02/20 [Rx] Oseltamivir Phosphate 75 mg PO BID #8 capsule 03/02/20 [Rx] Warfarin Sodium 2.5 mg PO DAILY #0 03/02/20 [Rx] Past Medical History Cardiovascular History: Reports: Afib, Heart Valve Replacement, High Cholesterol, Hypertension Respiratory History: Reports: Sleep Apnea Other Respiratory History: Uses CPAP Genitourinary History: Reports: BPH Musculoskeletal History: Reports: Osteoarthritis Endocrine/Metabolic History: Reports: Diabetes, Type II - Infectious Disease History Infectious Disease History: Reports: Measles, Novel Coronavirus - Past Surgical History HEENT Surgical History: Reports: Cataract Surgery, Tonsillectomy Other HEENT Surgeries/Procedures: 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 Cardiovascular Surgical History: Reports: Valve Replacement Respiratory Surgical History: Reports: None Male Surgical History: Reports: None Other Musculoskeletal Surgeries/Procedures:: KNEE TROUBLE-CORTISONE SHOTS ARTHRITIS Social & Family History - Family History Family Medical History: No Pertinent Family History - Tobacco Use Tobacco Use Status *Q: Never Tobacco User Second Hand Smoke Exposure: No - Caffeine Use Caffeine Use: Reports: None - Recreational Drug Use Recreational Drug Use: No ED ROS GENERAL - Review of Systems Review Of Systems: See Below Constitutional: Reports: No Symptoms HEENT: Reports: No Symptoms Respiratory: Reports: No Symptoms Cardiovascular: Reports: No Symptoms Endocrine: Reports: No Symptoms GI/Abdominal: Reports: Abdominal Pain, Constipation (has not had a BM today he reports), Decreased Appetite, Distension, Nausea, Vomiting. Denies: Diarrhea : Reports: No Symptoms Musculoskeletal: Reports: No Symptoms Skin: Reports: No Symptoms Neurological: Reports: No Symptoms Psychiatric: Reports: No Symptoms Hematologic/Lymphatic: Reports: No Symptoms Immunologic: Reports: No Symptoms ED EXAM, GENERAL - Physical Exam Exam: See Below Exam Limited By: No Limitations General Appearance: Alert, WD/WN, No Apparent Distress, Obese Eye Exam: Bilateral Eye: Normal Inspection, PERRL Ears: Normal External Exam, Normal Canal, Hearing Grossly Normal, Normal TMs Ear Exam: Bilateral Ear: Auricle Normal, Canal Normal, TM normal Nose: Normal Inspection, Normal Mucosa, No Blood Throat/Mouth: Normal Inspection, Normal Lips, Normal Teeth, Normal Gums, Normal Oropharynx, Normal Voice, No Airway Compromise Head: Atraumatic, Normocephalic Neck: Normal Inspection, Supple, Non-Tender, Full Range of Motion Respiratory/Chest: No Respiratory Distress, Lungs Clear, Normal Breath Sounds, No Accessory Muscle Use, Chest Non-Tender Cardiovascular: Normal Peripheral Pulses, No JVD, No Rub, Bradycardia (rate is 56 on exam), Systolic Murmur (Grade 3. Pig Valve) Peripheral Pulses: 2+: Radial (L), Radial (R), Posterior Tibial (L), Posterior Tibial (R), Dorsalis Pedis (L), Dorsalis Pedis (R) GI/Abdominal: Normal Bowel Sounds, Distended, Tender (RUQ, LUQ), Other (Obesity and Distention makes exam difficult to locate landmarks. ). No: Guarding, Rigid, Rebound, Abnormal Bowel Sounds (Male) Exam: Deferred Rectal (Males) Exam: Deferred Back Exam: Normal Inspection, Full Range of Motion. No: CVA Tenderness (L), CVA Tenderness (R) Extremities: Normal Inspection, Normal Range of Motion, Non-Tender, No Pedal Edema, Normal Capillary Refill Neurological: Alert, Oriented, Normal Cognition, No Motor/Sensory Deficits Psychiatric: Normal Affect, Normal Mood Skin Exam: Warm, Dry, Intact, Normal Color, No Rash Lymphatic: No Adenopathy #1 Interpretation EKG Date: 03/04/20 Time: 13:09 Rhythm: NSR Rate (Beats/Min): 62 P-Wave: Present QRS: Normal (I believe this is artifact in lead 1.) ST-T: Normal QT: Normal Comparison: Change From Previous EKG Course - Vital Signs Last Recorded V/S: Last Vital Signs Temp 97.4 F 03/04/20 15:21 Pulse 59 L 03/04/20 15:21 Resp 18 03/04/20 15:21 BP 154/75 H 03/04/20 15:21 Pulse Ox 97 03/04/20 15:21 - Orders/Labs/Meds Orders: Active Orders 24 hr Category Date Time Status Abdomen Pelvis w Cont [CT] Stat Exams 03/04/20 13:41 Taken Chest 2V [CR] Stat Exams 03/04/20 13:01 Taken Chest w Cont [CT] Stat Exams 03/04/20 13:50 Taken Labs: Laboratory Tests 03/04/20 03/04/20 03/04/20 Range/Units 13:01 13:01 13:01 WBC 20.6 H* (5.0-10.0) 10^3/uL RBC 3.59 L (4.50-6.00) 10^6/uL Hgb 10.5 L (14.0-18.0) g/dL Hct 35.3 L (40.0-54.0) % MCV 98.3 H (82.0-94.0) fL MCH 29.2 (27.0-32.0) pg MCHC 29.7 L (33.0-38.0) g/dL RDW Coeff of Rena 16.2 H (11.0-15.0) % Plt Count 320 (150-400) 10^3/uL Neut % (Auto) 88.3 H (35-85) % Lymph % (Auto) 5.3 L (10-55) % [place] % (Auto) 6.2 (0-16) % Eos % (Auto) 0 (0-5) % Baso % (Auto) 0.2 (0-3) % Neut # (Auto) 18.20 H (1.80-7.00) 10^3/uL Lymph # (Auto) 1.10 (1.00-4.80) 10^3/uL [place] # (Auto) 1.28 H (0.00-0.80) 10^3/uL Eos # (Auto) 0.01 (0.00-0.45) 10^3/uL Baso # (Auto) 0.05 10^3/uL PT 18.9 H (9.7-12.3) SEC INR 1.88 H (0.92-1.18) Sodium 136 (136-145) mEq/L Potassium 4.5 (3.5-5.0) mEq/L Chloride 100 (98-106) mEq/L Carbon Dioxide 33 H (21-32) mmol/L BUN 20 H (7-18) mg/dL Creatinine 1.0 (0.7-1.3) mg/dL Est Cr Clr Drug Dosing 57.69 mL/min Estimated GFR (MDRD) > 60 (>=60) mL/min Glucose 105 H D (75-99) mg/dL Lactic Acid (0.4-2.0) mmol/L Calcium 8.4 (8.4-10.1) mg/dL Magnesium 1.9 (1.8-2.4) mg/dL Total Bilirubin 0.6 (0.0-1.0) mg/dL AST 27 (15-37) U/L ALT 41 (12-78) U/L Alkaline Phosphatase 56 (46-116) U/L Troponin I 0.023 (0.00-0.06) ng/mL C-Reactive Protein 2.3 H (0.2-0.8) mg/dL NT-Pro-B Natriuret Pep 4152 H (0-1000) pg/mL Total Protein 6.0 L (6.4-8.2) g/dL Albumin 2.4 L (3.4-5.0) g/dL Amylase 2150 H (25-115) U/L Lipase 85568 H (73-393) U/L Urine Color (YELLOW) Urine Appearance (CLEAR) Urine pH (4.5-8.0) Ur Specific Antonito (1.003-1.020) Urine Protein (NEGATIVE) mg/dL Urine Glucose (UA) (NEGATIVE) mg/dL Urine Ketones (NEGATIVE) mg/dL Urine Occult Blood (NEGATIVE) Urine Nitrite (NEGATIVE) Urine Bilirubin (NEGATIVE) Urine Urobilinogen (0.2-1.0) EU/dL Ur Leukocyte Esterase (NEGATIVE) Urine RBC (0-5) /HPF Urine WBC (0-5) /HPF 03/04/20 03/04/20 Range/Units 13:02 13:42 WBC (5.0-10.0) 10^3/uL RBC (4.50-6.00) 10^6/uL Hgb (14.0-18.0) g/dL Hct (40.0-54.0) % MCV (82.0-94.0) fL MCH (27.0-32.0) pg MCHC (33.0-38.0) g/dL RDW Coeff of Rena (11.0-15.0) % Plt Count (150-400) 10^3/uL Neut % (Auto) (35-85) % Lymph % (Auto) (10-55) % [place]yer % (Auto) (0-16) % Eos % (Auto) (0-5) % Baso % (Auto) (0-3) % Neut # (Auto) (1.80-7.00) 10^3/uL Lymph # (Auto) (1.00-4.80) 10^3/uL [place]yer # (Auto) (0.00-0.80) 10^3/uL Eos # (Auto) (0.00-0.45) 10^3/uL Baso # (Auto) 10^3/uL PT (9.7-12.3) SEC INR (0.92-1.18) Sodium (136-145) mEq/L Potassium (3.5-5.0) mEq/L Chloride (98-106) mEq/L Carbon Dioxide (21-32) mmol/L BUN (7-18) mg/dL Creatinine (0.7-1.3) mg/dL Est Cr Clr Drug Dosing mL/min Estimated GFR (MDRD) (>=60) mL/min Glucose (75-99) mg/dL Lactic Acid 1.8 (0.4-2.0) mmol/L Calcium (8.4-10.1) mg/dL Magnesium (1.8-2.4) mg/dL Total Bilirubin (0.0-1.0) mg/dL AST (15-37) U/L ALT (12-78) U/L Alkaline Phosphatase (46-116) U/L Troponin I (0.00-0.06) ng/mL C-Reactive Protein (0.2-0.8) mg/dL NT-Pro-B Natriuret Pep (0-1000) pg/mL Total Protein (6.4-8.2) g/dL Albumin (3.4-5.0) g/dL Amylase (25-115) U/L Lipase (73-393) U/L Urine Color Yellow (YELLOW) Urine Appearance Clear (CLEAR) Urine pH 5.5 (4.5-8.0) Ur Specific Antonito >= 1.030 H (1.003-1.020) Urine Protein 30 H (NEGATIVE) mg/dL Urine Glucose (UA) Negative (NEGATIVE) mg/dL Urine Ketones Negative (NEGATIVE) mg/dL Urine Occult Blood Negative (NEGATIVE) Urine Nitrite Negative (NEGATIVE) Urine Bilirubin Negative (NEGATIVE) Urine Urobilinogen 0.2 (0.2-1.0) EU/dL Ur Leukocyte Esterase Negative (NEGATIVE) Urine RBC Not seen (0-5) /HPF Urine WBC Not seen (0-5) /HPF Meds: Medications Discontinued Medications Generic Name Dose Route Start Last Admin Trade Name Freq PRN Reason Stop Dose Admin Sodium Chloride 250 mls @ 500 mls/hr 03/04/20 13:45 03/04/20 14:02 Normal Saline IV 500 mls/hr .BOLUS KRISTOPHER Administration Sodium Chloride Confirm 03/04/20 14:17 03/04/20 14:10 Normal Saline Administered 03/04/20 14:18 Not Given Dose 250 mls @ as directed .ROUTE .STK-MED ONE Iopamidol 160 ml 03/04/20 13:34 03/04/20 14:02 Isovue-370 (76%) IV 03/04/20 13:35 160 ml ONETIME ONE Administration Morphine Sulfate 4 mg 03/04/20 14:19 03/04/20 14:24 Morphine IVPUSH 03/04/20 14:20 4 mg ONETIME ONE Administration Ondansetron HCl 4 mg 03/04/20 13:41 03/04/20 14:02 Zofran IVPUSH 03/04/20 13:42 4 mg NOW STA Administration - Radiology Interpretation Free Text/Narrative:: CXR: Clear. No acute changes. CT with contrast chest: Minor atelectatic changes in right lung base, otherwise negative chest. CT with contrast abd/pelvis: Findings are compatible with pancreatitis. There is stranding of the peripancreatic fat and a small amount of ascites. No evidence of pseudocyst formation or other complication. Pre-existing diffuse fatty infiltration of pancreas. The gallbladder is contracted and there are small gallstones. No CT evidence for acute cholecystitis. No finding to suggest choledocholithiasis. CT Results Date: 03/04/20 CT Results Time: 14:50 - Re-Assessments/Exams Free Text/Narrative Re-Assessment/Exam: 03/04/20 13:51 Patient CXR is clear. Patient wbc is 20k. It was this high and higher during admit. I will CT abd/pelvis to r/o obstruction. I will also go ahead and ct chest while patient is already being scanned ct with contrast to r/o bacterial infiltrates. I did review patient CT done on the 2nd that showed viral pneumonia. 03/04/20 15:00 Patient reports that his pain has improved a lot after Morphine and Zofran. The patient reports that he "occasionally" drinks alcohol. He reports that he drinks occasionally on weekends and drinks about 4-5 wine coolers. I called and spoke to general surgeon Dr. Diallo at [facility] to confirm surgical or not. He reports that this patient has high lipase lab levels and those need to come down. He reports that once those are lowered surgery needs to see the patient. Since we do not have surgery here in [place], he reports the patient needs to be transferred. I then spoke to Dr. Werner hospitalist at [facility], he has accepted the patient. Will transfer the patient ALS for possible need of pain medications and Zofran. Departure - Departure Time of Disposition: 15:28 Disposition: DC/Tfer to [facility] 02 Condition: Fair Clinical Impression: Multiple gallstones Acute pancreatitis Qualifiers: Pancreatitis type: unspecified pancreatitis type Acute pancreatitis complication: unspecified Qualified Code(s): K85.90 - Acute pancreatitis without necrosis or infection, unspecified - Discharge Information *PRESCRIPTION DRUG MONITORING PROGRAM REVIEWED*: Not Applicable *COPY OF PRESCRIPTION DRUG MONITORING REPORT IN PATIENT DENISA: Not Applicable Referrals: Js Wilson MD [Primary Care Provider] - Forms: ED Department Discharge Sepsis Event Note (ED) - Evaluation Sepsis Screening Result: No Definite Risk - Focused Exam Vital Signs: Vital Signs Temp Pulse Resp BP Pulse Ox 03/04/20 15:21 97.4 F 59 L 18 154/75 H 97 03/04/20 12:49 97.3 F 53 L 18 177/83 H 96 - My Orders Last 24 Hours: My Active Orders 03/04/20 13:01 Chest 2V [CR] Stat 03/04/20 13:41 Abdomen Pelvis w Cont [CT] Stat 03/04/20 13:50 Chest w Cont [CT] Stat - Assessment/Plan Last 24 Hours: My Active Orders 03/04/20 13:01 Chest 2V [CR] Stat 03/04/20 13:41 Abdomen Pelvis w Cont [CT] Stat 03/04/20 13:50 Chest w Cont [CT] Stat Plan: PLEASE SEE RN NOTE FOR PFS This patient is being transferred, discussed risk vs benefits with patient and he has accepted the transfer. The risk of transfer is mvc, , pain, vomiting, worsening of condition. The risk of staying here in [place] is no general surgeon, worsening of condition, . The benefits of transfer are higher level of care, general surgeon, [place] capability. The benefits of staying in [place] is close to home.
[2020-03-04 13:54] LABS: CHLORIDE,CL 100 mEq/L (98-106); SODIUM,NA 136 mEq/L (136-145)
[2020-03-04] MEDS: Ondansetron 4 MG/2 ML SDV IVPUSH STA (14:02)
[2020-03-04] MEDS: Iopamidol 755 Mg/ML 200 ML Bottle IV ONE (14:02)
[2020-03-04] MEDS: Sodium Chloride 0.9% 250 ML IV SCH (14:02)
[2020-03-04] MEDS: Sodium Chloride 0.9% 250 ML ONE (14:10)
[2020-03-04] MEDS: Morphine 4 MG/ML VIAL IVPUSH ONE (14:24)
[2020-03-04 15:22] VITALS: BP 154/75; PULSE 59
== END 2020-03-04 16:08 ==
LOC: CC.ED 12:48
DX: K85.10 Biliary acute pancreatitis without necrosis or infection (principal); I48.91 Unspecified atrial fibrillation; I10 Essential (primary) hypertension; E78.00 Pure hypercholesterolemia, unspecified; E11.9 Type 2 diabetes mellitus without complications; N40.0 Benign prostatic hyperplasia without lower urinary tract symptoms; Z79.01 Long term (current) use of anticoagulants; Z79.899 Other long term (current) drug therapy
CPT/HCPCS: 36415; 71046; 71260; 74177; 80053; 81001; 82150; 83605; 83690; 83735; 83880; 84484; 85025; 85610; 86140; 96374; 96375; 99285-25; J2270; J2405; J7040; Q9967